=== PATIENT | female | born 2000 | race Caucasian/White ===

== ENCOUNTER → 2019-10-02 08:48 | Outpatient (BNVA) | payer OTHER, SELFPAY | PROVIDERS: Family Provider Family Medicine; PCP Family Medicine; Visit Provider Counselor Professional | DX: F31.62 Bipolar disorder, current episode mixed, moderate (principal); Z91.5 Personal history of self-harm; Z79.899 Other long term (current) drug therapy | CPT/HCPCS: 90834; 36415; 80053; 80178; 82306; 84443; 85025 ==

== ENCOUNTER → 2019-10-17 09:44 | Outpatient (BNVA) | payer OTHER, SELFPAY | PROVIDERS: Family Provider Family Medicine; PCP Family Medicine; Visit Provider Counselor Professional | DX: F31.62 Bipolar disorder, current episode mixed, moderate (principal); Z91.5 Personal history of self-harm | CPT/HCPCS: 90834 ==

== ENCOUNTER → 2019-10-31 09:43 | Outpatient (BNVA) | payer OTHER, SELFPAY | PROVIDERS: Family Provider Family Medicine; PCP Family Medicine; Visit Provider Counselor Professional | DX: F43.12 Post-traumatic stress disorder, chronic (principal); F31.62 Bipolar disorder, current episode mixed, moderate; Z91.5 Personal history of self-harm | CPT/HCPCS: 90834 ==

== ENCOUNTER → 2019-11-14 09:45 | Outpatient (BNVA) | payer OTHER, SELFPAY | PROVIDERS: Family Provider Family Medicine; PCP Family Medicine; Visit Provider Counselor Professional | DX: F60.3 Borderline personality disorder (principal); F43.12 Post-traumatic stress disorder, chronic; F31.62 Bipolar disorder, current episode mixed, moderate | CPT/HCPCS: 90834 ==

== ENCOUNTER → 2019-11-28 09:43 | Outpatient (BNVA) | payer OTHER, SELFPAY | PROVIDERS: Family Provider Family Medicine; PCP Family Medicine; Visit Provider Counselor Professional | DX: F43.12 Post-traumatic stress disorder, chronic (principal); Z91.5 Personal history of self-harm; F31.62 Bipolar disorder, current episode mixed, moderate | CPT/HCPCS: 90834 ==

== ENCOUNTER → 2019-12-26 10:05 | Outpatient (BNVA) | payer OTHER, SELFPAY | PROVIDERS: Family Provider Family Medicine; PCP Family Medicine; Visit Provider Counselor Professional | DX: F43.12 Post-traumatic stress disorder, chronic; F60.3 Borderline personality disorder; F31.62 Bipolar disorder, current episode mixed, moderate; Z91.5 Personal history of self-harm | CPT/HCPCS: 90834 ==

== ENCOUNTER → 2020-01-06 07:30 | Outpatient (BNVA) | payer OTHER, SELFPAY | PROVIDERS: Family Provider Family Medicine; PCP Family Medicine; Visit Provider Nurse Practitioner Psychiatric/Mental Health | DX: F31.62 Bipolar disorder, current episode mixed, moderate (principal); F43.12 Post-traumatic stress disorder, chronic; F60.3 Borderline personality disorder; Z91.5 Personal history of self-harm; F33.2 Major depressive disorder, recurrent severe without psychotic features | CPT/HCPCS: 99213 ==

== ENCOUNTER → 2020-01-23 07:59 | Outpatient (BNVA) | payer OTHER, SELFPAY | PROVIDERS: Family Provider Family Medicine; PCP Family Medicine; Visit Provider Counselor Professional | DX: Z91.5 Personal history of self-harm (principal); F43.12 Post-traumatic stress disorder, chronic; F60.3 Borderline personality disorder | CPT/HCPCS: 90834; 90839 ==

== ENCOUNTER → 2020-01-30 07:41 | Outpatient (BNVA) | payer OTHER, SELFPAY | PROVIDERS: Family Provider Family Medicine; PCP Family Medicine; Visit Provider Counselor Professional | DX: Z91.5 Personal history of self-harm (principal); F60.3 Borderline personality disorder; F43.12 Post-traumatic stress disorder, chronic; F31.62 Bipolar disorder, current episode mixed, moderate | CPT/HCPCS: 90834; 90839 ==

== ENCOUNTER → 2020-02-06 08:02 | Outpatient (BNVA) | payer OTHER, SELFPAY | PROVIDERS: Family Provider Family Medicine; PCP Family Medicine; Visit Provider Counselor Professional | DX: Z91.5 Personal history of self-harm (principal); F31.62 Bipolar disorder, current episode mixed, moderate; F43.12 Post-traumatic stress disorder, chronic | CPT/HCPCS: 90834 ==

== ENCOUNTER → 2020-02-13 07:57 | Outpatient (BNVA) | payer OTHER, SELFPAY | PROVIDERS: Family Provider Family Medicine; PCP Family Medicine; Visit Provider Counselor Professional | DX: Z91.5 Personal history of self-harm (principal); F31.62 Bipolar disorder, current episode mixed, moderate; F43.12 Post-traumatic stress disorder, chronic; F60.3 Borderline personality disorder | CPT/HCPCS: 90834 ==

== ENCOUNTER → 2020-02-25 07:53 | Outpatient (BNVA) | payer OTHER, SELFPAY | PROVIDERS: Family Provider Family Medicine; PCP Family Medicine; Visit Provider Counselor Professional | DX: F43.12 Post-traumatic stress disorder, chronic (principal); Z91.5 Personal history of self-harm; F31.62 Bipolar disorder, current episode mixed, moderate | CPT/HCPCS: 90834 ==

== ENCOUNTER → 2020-03-05 07:53 | Outpatient (BNVA) | payer OTHER, SELFPAY | PROVIDERS: Family Provider Family Medicine; PCP Family Medicine; Visit Provider Counselor Professional | DX: Z91.5 Personal history of self-harm (principal); F43.12 Post-traumatic stress disorder, chronic; F31.62 Bipolar disorder, current episode mixed, moderate | CPT/HCPCS: 90834 ==

== ENCOUNTER → 2020-03-19 08:14 | Outpatient (BNVA) | payer OTHER, BC, SELFPAY | PROVIDERS: Family Provider Family Medicine; PCP Family Medicine; Visit Provider Counselor Professional | DX: Z91.5 Personal history of self-harm (principal); F43.12 Post-traumatic stress disorder, chronic; F31.62 Bipolar disorder, current episode mixed, moderate | CPT/HCPCS: 90834 ==

== ENCOUNTER → 2020-04-01 08:09 | Outpatient (BNVA) | payer OTHER, SELFPAY | PROVIDERS: Family Provider Family Medicine; PCP Family Medicine; Visit Provider Counselor Professional | DX: F43.12 Post-traumatic stress disorder, chronic (principal); Z91.5 Personal history of self-harm; F31.62 Bipolar disorder, current episode mixed, moderate | CPT/HCPCS: 90834 ==

== ENCOUNTER → 2020-04-05 07:35 | Outpatient (BNVA) | payer OTHER, SELFPAY | PROVIDERS: Family Provider Family Medicine; PCP Family Medicine; Visit Provider Nurse Practitioner Psychiatric/Mental Health | DX: F31.62 Bipolar disorder, current episode mixed, moderate (principal); F43.12 Post-traumatic stress disorder, chronic; F60.3 Borderline personality disorder; Z91.5 Personal history of self-harm | CPT/HCPCS: 99214 ==

== ENCOUNTER → 2020-04-16 08:11 | Outpatient (BNVA) | payer OTHER, SELFPAY | PROVIDERS: Family Provider Family Medicine; PCP Family Medicine; Visit Provider Counselor Professional | DX: Z91.5 Personal history of self-harm (principal); F43.12 Post-traumatic stress disorder, chronic; F31.62 Bipolar disorder, current episode mixed, moderate | CPT/HCPCS: 90834 ==

== ENCOUNTER → 2020-05-03 10:57 | Outpatient (BNVA) | payer OTHER, SELFPAY | PROVIDERS: Family Provider Family Medicine; PCP Family Medicine; Visit Provider Nurse Practitioner Psychiatric/Mental Health | DX: Z79.899 Other long term (current) drug therapy (principal) | CPT/HCPCS: 80053; 82652; 84443; 85025 ==

== ENCOUNTER → 2020-05-04 07:44 | Outpatient (BNVA) | payer OTHER, SELFPAY | PROVIDERS: Family Provider Family Medicine; PCP Family Medicine; Visit Provider Nurse Practitioner Psychiatric/Mental Health | DX: F31.62 Bipolar disorder, current episode mixed, moderate (principal); F43.12 Post-traumatic stress disorder, chronic; F60.3 Borderline personality disorder; Z91.5 Personal history of self-harm | CPT/HCPCS: 99214 ==

== ENCOUNTER → 2020-05-06 07:38 | Outpatient (BNVA) | payer OTHER, SELFPAY | PROVIDERS: Family Provider Family Medicine; PCP Family Medicine; Visit Provider Counselor Professional | DX: F43.12 Post-traumatic stress disorder, chronic (principal); Z91.5 Personal history of self-harm; F31.62 Bipolar disorder, current episode mixed, moderate | CPT/HCPCS: 90834 ==

== ENCOUNTER → 2020-05-14 09:08 | Outpatient (BNVA) | payer OTHER, SELFPAY | PROVIDERS: Family Provider Family Medicine; PCP Family Medicine; Visit Provider Counselor Professional | DX: Z91.5 Personal history of self-harm (principal); F43.12 Post-traumatic stress disorder, chronic; F31.62 Bipolar disorder, current episode mixed, moderate | CPT/HCPCS: 90834 ==

== ENCOUNTER → 2020-05-19 07:37 | Outpatient (BNVA) | payer OTHER, SELFPAY | PROVIDERS: Family Provider Family Medicine; PCP Family Medicine; Visit Provider Nurse Practitioner Psychiatric/Mental Health | DX: F31.62 Bipolar disorder, current episode mixed, moderate (principal); F43.12 Post-traumatic stress disorder, chronic; F60.3 Borderline personality disorder; Z91.5 Personal history of self-harm | CPT/HCPCS: 99214 ==

== ENCOUNTER → 2020-05-21 08:26 | Outpatient (BNVA) | payer OTHER, SELFPAY | PROVIDERS: Family Provider Family Medicine; PCP Family Medicine; Visit Provider Counselor Professional | DX: Z91.5 Personal history of self-harm (principal); F43.12 Post-traumatic stress disorder, chronic; F31.62 Bipolar disorder, current episode mixed, moderate | CPT/HCPCS: 90834 ==

== ENCOUNTER → 2020-05-28 09:09 | Outpatient (BNVA) | payer OTHER, SELFPAY | PROVIDERS: Family Provider Family Medicine; PCP Family Medicine; Visit Provider Counselor Professional | DX: Z91.5 Personal history of self-harm (principal); F43.12 Post-traumatic stress disorder, chronic; F31.62 Bipolar disorder, current episode mixed, moderate | CPT/HCPCS: 90834 ==

== ENCOUNTER → 2020-06-07 08:19 | Outpatient (BNVA) | payer OTHER, SELFPAY | PROVIDERS: Family Provider Family Medicine; PCP Family Medicine; Visit Provider Nurse Practitioner Psychiatric/Mental Health | DX: F31.62 Bipolar disorder, current episode mixed, moderate (principal); F43.12 Post-traumatic stress disorder, chronic; F60.3 Borderline personality disorder; Z91.5 Personal history of self-harm | CPT/HCPCS: 99214 ==

== ENCOUNTER → 2020-06-11 07:51 | Outpatient (BNVA) | payer OTHER, SELFPAY | PROVIDERS: Family Provider Family Medicine; PCP Family Medicine; Visit Provider Counselor Professional | DX: Z91.5 Personal history of self-harm (principal); F43.12 Post-traumatic stress disorder, chronic; F31.62 Bipolar disorder, current episode mixed, moderate | CPT/HCPCS: 90834 ==

== ENCOUNTER → 2020-07-09 08:53 | Outpatient (BNVA) | payer OTHER, SELFPAY | PROVIDERS: Family Provider Family Medicine; PCP Family Medicine; Visit Provider Counselor Professional | DX: F31.62 Bipolar disorder, current episode mixed, moderate (principal); Z91.5 Personal history of self-harm; F43.12 Post-traumatic stress disorder, chronic | CPT/HCPCS: 90834 ==

== ENCOUNTER → 2020-07-16 08:20 | Outpatient (BNVA) | payer OTHER, SELFPAY | PROVIDERS: Family Provider Family Medicine; PCP Family Medicine; Visit Provider Counselor Professional | DX: Z91.5 Personal history of self-harm (principal); F43.12 Post-traumatic stress disorder, chronic; F31.62 Bipolar disorder, current episode mixed, moderate | CPT/HCPCS: 90834 ==

== ENCOUNTER → 2020-07-23 07:51 | Outpatient (BNVA) | payer OTHER, SELFPAY | PROVIDERS: Family Provider Family Medicine; PCP Family Medicine; Visit Provider Counselor Professional | DX: F31.62 Bipolar disorder, current episode mixed, moderate (principal); Z91.5 Personal history of self-harm; F43.12 Post-traumatic stress disorder, chronic | CPT/HCPCS: 90834 ==

== ENCOUNTER → 2020-07-30 07:30 | Outpatient (BNVA) | payer OTHER, SELFPAY | PROVIDERS: Family Provider Family Medicine; PCP Family Medicine; Visit Provider Nurse Practitioner Psychiatric/Mental Health | DX: F31.62 Bipolar disorder, current episode mixed, moderate (principal); F43.12 Post-traumatic stress disorder, chronic; F60.3 Borderline personality disorder; Z91.5 Personal history of self-harm; F41.1 Generalized anxiety disorder; Z79.899 Other long term (current) drug therapy | CPT/HCPCS: 99214 ==

== ENCOUNTER 2020-07-30 10:54 | Outpatient (CLI) | payer OTHER, SELFPAY ==
--- NOTE | 2020-07-30 11:17 | ECG_ITS ---
[facility] Test Date: 2020-07-30 Pat Name: Astrid Liu Department: Room: Gender: Female Nutrition Services Aide: : 2000 Requested By: Mary Kay Mitchell Order Number: [id number] Abel MD: REJI BECKWITH Measurements Intervals [place] Rate: 84 P: 38 [place]: 150 QRS: 58 QRSD: 114 T: 42 QT: 367 QTc: 434 Interpretive Statements SINUS RHYTHM WITH SINUS ARRHYTHMIA INCOMPLETE RIGHT BUNDLE BRANCH BLOCK [90+ ms QRS DURATION, TERMINAL R IN V1/V2, 40+ ms S IN I/aVL/V4/V5/V6] INTERPRETATION BASED ON A DEFAULT AGE OF 40 YEARS Compared to ECG 10/03/2016 12:30:09 No significant changes Electronically Signed On 07-30-2020 19:32:38 EMBOSSING CLERK by REJI BECKWITH [id number]
== END 2020-07-30 10:55 | disposition home or self-care (01) ==
LOC: RT 10:57
PROVIDERS: PCP Family Medicine; Visit Provider Nurse Practitioner Psychiatric/Mental Health
DX: Z03.89 Encounter for observation for other suspected diseases and conditions ruled out (principal)
CPT/HCPCS: 80061; 83036; 93005

== ENCOUNTER → 2020-08-06 09:43 | Outpatient (BNVA) | payer OTHER, SELFPAY | PROVIDERS: PCP Family Medicine; Visit Provider Counselor Professional | DX: F31.62 Bipolar disorder, current episode mixed, moderate (principal); F43.12 Post-traumatic stress disorder, chronic; Z91.5 Personal history of self-harm | CPT/HCPCS: 90834 ==

== ENCOUNTER → 2020-08-11 07:30 | Outpatient (BNVA) | payer OTHER, SELFPAY | PROVIDERS: PCP Family Medicine; Visit Provider Nurse Practitioner Psychiatric/Mental Health | DX: F31.62 Bipolar disorder, current episode mixed, moderate (principal); F43.12 Post-traumatic stress disorder, chronic; F60.3 Borderline personality disorder; Z91.5 Personal history of self-harm; Z79.899 Other long term (current) drug therapy | CPT/HCPCS: 99214 ==

== ENCOUNTER → 2020-08-25 07:33 | Outpatient (BNVA) | payer OTHER, SELFPAY | PROVIDERS: PCP Family Medicine; Visit Provider Nurse Practitioner Psychiatric/Mental Health | DX: F31.62 Bipolar disorder, current episode mixed, moderate (principal); F43.12 Post-traumatic stress disorder, chronic; Z91.5 Personal history of self-harm; F60.3 Borderline personality disorder; F41.1 Generalized anxiety disorder | CPT/HCPCS: 99214 ==

== ENCOUNTER → 2020-08-31 08:25 | Outpatient (BNVA) | payer OTHER, SELFPAY | PROVIDERS: PCP Family Medicine; Visit Provider Counselor Professional | DX: Z91.5 Personal history of self-harm (principal); F31.62 Bipolar disorder, current episode mixed, moderate; F43.12 Post-traumatic stress disorder, chronic; F60.3 Borderline personality disorder | CPT/HCPCS: 90834 ==

== ENCOUNTER → 2020-09-08 08:22 | Outpatient (BNVA) | payer OTHER, SELFPAY | PROVIDERS: PCP Family Medicine; Visit Provider Nurse Practitioner Psychiatric/Mental Health | DX: Z91.5 Personal history of self-harm (principal); F31.62 Bipolar disorder, current episode mixed, moderate; F43.12 Post-traumatic stress disorder, chronic; F60.3 Borderline personality disorder | CPT/HCPCS: 99214 ==

== ENCOUNTER → 2020-09-10 08:01 | Outpatient (BNVA) | payer OTHER, SELFPAY | PROVIDERS: PCP Family Medicine; Visit Provider Counselor Professional | DX: F31.62 Bipolar disorder, current episode mixed, moderate (principal); Z91.5 Personal history of self-harm; F43.12 Post-traumatic stress disorder, chronic; F60.3 Borderline personality disorder | CPT/HCPCS: 90834; 80178 ==

== ENCOUNTER → 2020-10-01 09:09 | Outpatient (BNVA) | payer OTHER, SELFPAY | PROVIDERS: PCP Family Medicine; Visit Provider Counselor Professional | DX: F31.62 Bipolar disorder, current episode mixed, moderate (principal); Z91.5 Personal history of self-harm; F43.12 Post-traumatic stress disorder, chronic; F60.3 Borderline personality disorder | CPT/HCPCS: 90834; 90839 ==

== ENCOUNTER → 2020-10-08 08:15 | Outpatient (BNVA) | payer OTHER, SELFPAY | PROVIDERS: PCP Family Medicine; Visit Provider Counselor Professional | DX: F31.62 Bipolar disorder, current episode mixed, moderate (principal); Z91.5 Personal history of self-harm; F43.12 Post-traumatic stress disorder, chronic; F60.3 Borderline personality disorder | CPT/HCPCS: 90834 ==

== ENCOUNTER → 2020-10-22 08:07 | Outpatient (BNVA) | payer OTHER, SELFPAY | PROVIDERS: PCP Family Medicine; Visit Provider Counselor Professional | DX: F60.3 Borderline personality disorder (principal); F43.12 Post-traumatic stress disorder, chronic; F31.62 Bipolar disorder, current episode mixed, moderate | CPT/HCPCS: 90834 ==

== ENCOUNTER → 2020-10-29 07:56 | Outpatient (BNVA) | payer OTHER, SELFPAY ==
[2020-10-27 16:47] VITALS: BP 136/72; BMI 43.6
== END ==
PROVIDERS: PCP Family Medicine; Visit Provider Nurse Practitioner Psychiatric/Mental Health
DX: F31.62 Bipolar disorder, current episode mixed, moderate (principal); F43.12 Post-traumatic stress disorder, chronic; F60.3 Borderline personality disorder; Z91.5 Personal history of self-harm; Z79.899 Other long term (current) drug therapy
CPT/HCPCS: 80178; 84439; 84443; 84481; 99214

== ENCOUNTER → 2020-11-04 07:43 | Outpatient (BNVA) | payer OTHER, SELFPAY ==
[2020-10-27 16:47] VITALS: BP 136/72; BMI 43.6
== END ==
PROVIDERS: PCP Family Medicine; Visit Provider Counselor Professional
DX: Z91.5 Personal history of self-harm (principal); F31.62 Bipolar disorder, current episode mixed, moderate; F43.12 Post-traumatic stress disorder, chronic; F60.3 Borderline personality disorder
CPT/HCPCS: 90834

== ENCOUNTER → 2020-11-17 08:34 | Outpatient (BNVA) | payer OTHER, SELFPAY ==
[2020-10-27 16:47] VITALS: BP 136/72; BMI 43.6
== END ==
PROVIDERS: PCP Family Medicine; Visit Provider Social Worker
DX: F60.3 Borderline personality disorder (principal); F43.12 Post-traumatic stress disorder, chronic; Z91.5 Personal history of self-harm; F31.62 Bipolar disorder, current episode mixed, moderate
CPT/HCPCS: 90834

== ENCOUNTER → 2020-11-26 07:58 | Outpatient (BNVA) | payer OTHER, SELFPAY ==
[2020-10-27 16:47] VITALS: BP 136/72; BMI 43.6
== END ==
PROVIDERS: PCP Family Medicine; Visit Provider Nurse Practitioner Psychiatric/Mental Health
DX: F43.12 Post-traumatic stress disorder, chronic (principal); F31.62 Bipolar disorder, current episode mixed, moderate; F60.3 Borderline personality disorder; Z79.899 Other long term (current) drug therapy; Z03.89 Encounter for observation for other suspected diseases and conditions ruled out; Z91.5 Personal history of self-harm
CPT/HCPCS: 99214

== ENCOUNTER → 2020-12-08 07:54 | Outpatient (BNVA) | payer OTHER, SELFPAY ==
[2020-10-27 16:47] VITALS: BP 136/72; BMI 43.6
== END ==
PROVIDERS: PCP Family Medicine; Visit Provider Social Worker
DX: F60.3 Borderline personality disorder (principal); F43.12 Post-traumatic stress disorder, chronic; F31.62 Bipolar disorder, current episode mixed, moderate
CPT/HCPCS: 90834

== ENCOUNTER → 2020-12-10 07:31 | Outpatient (BNVA) | payer OTHER, SELFPAY ==
[2020-10-27 16:47] VITALS: BP 136/72; BMI 43.6
== END ==
PROVIDERS: PCP Family Medicine; Visit Provider Nurse Practitioner Psychiatric/Mental Health
DX: F31.62 Bipolar disorder, current episode mixed, moderate (principal); F43.12 Post-traumatic stress disorder, chronic; Z79.899 Other long term (current) drug therapy; Z03.89 Encounter for observation for other suspected diseases and conditions ruled out; Z91.5 Personal history of self-harm; F60.3 Borderline personality disorder; F10.20 Alcohol dependence, uncomplicated
CPT/HCPCS: 99214

== ENCOUNTER → 2020-12-15 14:40 | Outpatient (BNVA) | payer OTHER, SELFPAY ==
[2020-10-27 16:47] VITALS: BP 136/72; BMI 43.6
== END ==
PROVIDERS: PCP Family Medicine; Visit Provider Social Worker
DX: F43.12 Post-traumatic stress disorder, chronic (principal); F60.3 Borderline personality disorder
CPT/HCPCS: 90834

== ENCOUNTER → 2020-12-22 14:44 | Outpatient (BNVA) | payer OTHER, SELFPAY ==
[2020-10-27 16:47] VITALS: BP 136/72; BMI 43.6
== END ==
PROVIDERS: PCP Family Medicine; Visit Provider Social Worker
DX: F60.3 Borderline personality disorder (principal); F43.10 Post-traumatic stress disorder, unspecified
CPT/HCPCS: 90834

== ENCOUNTER → 2020-12-24 13:19 | Outpatient (BNVA) | payer OTHER, SELFPAY ==
[2020-10-27 16:47] VITALS: BP 136/72; BMI 43.6
== END ==
PROVIDERS: PCP Family Medicine; Visit Provider Nurse Practitioner Psychiatric/Mental Health
DX: Z03.89 Encounter for observation for other suspected diseases and conditions ruled out (principal)
CPT/HCPCS: 80053

== ENCOUNTER → 2020-12-31 07:28 | Outpatient (BNVA) | payer OTHER, SELFPAY ==
[2020-10-27 16:47] VITALS: BP 136/72; BMI 43.6
== END ==
PROVIDERS: PCP Family Medicine; Visit Provider Nurse Practitioner Psychiatric/Mental Health
DX: F31.62 Bipolar disorder, current episode mixed, moderate (principal); F43.12 Post-traumatic stress disorder, chronic; Z91.5 Personal history of self-harm; Z79.899 Other long term (current) drug therapy; Z03.89 Encounter for observation for other suspected diseases and conditions ruled out; F60.3 Borderline personality disorder; F10.20 Alcohol dependence, uncomplicated
CPT/HCPCS: 99214

== ENCOUNTER → 2021-01-05 14:45 | Outpatient (BNVA) | payer OTHER, SELFPAY ==
[2020-10-27 16:47] VITALS: BP 136/72; BMI 43.6
== END ==
PROVIDERS: PCP Family Medicine; Visit Provider Social Worker
DX: F60.3 Borderline personality disorder (principal); F10.20 Alcohol dependence, uncomplicated; Z91.5 Personal history of self-harm; F43.12 Post-traumatic stress disorder, chronic; F31.62 Bipolar disorder, current episode mixed, moderate
CPT/HCPCS: 90834

== ENCOUNTER 2021-01-05 19:20 | Emergency (ER) | payer OTHER, SELFPAY ==
[2020-10-27 16:47] VITALS: BP 136/72; BMI 43.6
[2021-01-05 19:51] VITALS: BP 168/95; PULSE 84; RESP 18; TEMP 36.9; O2SAT 100; BMI 39.4
--- NOTE | 2021-01-05 20:31 | ECG_ITS ---
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 Measurements Intervals [place] Rate: 87 P: 34 [place]: 129 QRS: 56 QRSD: 119 T: 32 QT: 371 QTc: 447 Interpretive Statements SINUS RHYTHM WITH SINUS ARRHYTHMIA MODERATE INTRAVENTRICULAR CONDUCTION DELAY [110+ ms QRS DURATION] Compared to ECG 07/30/2020 11:10:12 Intraventricular conduction delay now present Incomplete right bundle-branch block no longer present Electronically Signed On 01-05-2021 23:59:38 CDT by Christine Andrea M.D. [id number]
--- NOTE | 2021-01-05 20:59 | W.ED.ANXIETY ---
HPI - Anxiety General: Chief Complaint: Anxiety Stated Complaint: took caffeine pills Time Seen by Provider: 01/05/21 20:04 Source: patient Mode of arrival: ambulatory Limitations: no limitations History of Present Illness: HPI narrative: 20-year-old female who states she took a 500 mg caffeine pill today at 6 PM. She states she has never taken one before states she started having severe palpitations and feeling extremely anxious. States her heart rate was racing in the 120s causing her some chest discomfort. She states she took a Vistaril at home and is feeling improved but still has some palpitations. Denies any shortness of breath. Denies any worsening or factors. Associated symptoms: Reports palpitations; Deny chest pain, chills, fever(s), headache(s), nausea or vomiting Review of Systems Const: Denies: fever(s), chills, body aches or change in appetite Eyes: Denies: blurry vision or eye discomfort ENMT: Denies: throat pain or dental pain Card: Reports: palpitations; Denies: chest pain Resp: Denies: dyspnea GI: Denies: abdominal pain, nausea, vomiting or diarrhea : Denies: dysuria Musc: Denies: neck pain or back pain Skin/Breast: Denies: rash Neuro: Denies: headache(s) Psych: Denies: depression Roger/Lymph: Denies: easy bruising All/Imm: Denies: urticaria PFSH ED PFSH: Medical History (Updated 01/05/21 @ 21:02 by Etta Arnold MD) Alcohol use disorder, moderate, dependence Bipolar 1 disorder, mixed, moderate Borderline personality disorder History of self injurious behavior Post-traumatic stress disorder, chronic Social History Smoking and tobacco status: never smoked Female Reproductive History: Date of last menstrual period: 12/23/20 Physical Exam Const: COMMON NORMALS: no acute distress, patient oriented x3 and healthy appearing HENMT: COMMON NORMALS: normocephalic and atraumatic HEAD & SCALP: normocephalic and atraumatic Eye: COMMON NORMALS: Equal, round and reactive pupils present and EOMs intact bilaterally PUPIL: Yes Equal, round and reactive pupils present Neck/C-Spine: COMMON NORMALS: full ROM and supple Chest: COMMONS NORMALS: normal inspection of the chest and normal palpation of entire chest wall Resp: COMMON NORMALS: normal respiratory effort, No retractions, No use of accessory muscles and clear to auscultation bilaterally AUSCULTATION: clear to auscultation bilaterally Cardio: COMMON NORMALS: regular rate, regular rhythm and No murmurs present (Cardio) RATE: regular rate RHYTHM: regular rhythm GI: COMMON NORMALS: Normal to inspection, nondistended, normoactive bowel sounds present, Soft to palpation, non-tender and no masses PALPATION: Yes Soft to palpation Extremity: COMMON NORMALS: normal to inspection and full ROM Neuro: COMMON NORMALS: patient oriented x3, moves all extremities and no focal motor deficits Psych: COMMON NORMALS: mental status grossly normal, Normal thought process present and cooperative THOUGHT PROCESS: Normal thought process present Skin: COMMON NORMALS: no rashes or lesions noted and no wounds GENERAL SKIN EXAM: no rashes or lesions noted Course Vital Signs: Vital signs: Vital Signs Temperature 98.4 F 01/05/21 19:51 Pulse Rate 74 01/05/21 21:26 Respiratory Rate 18 01/05/21 21:26 Blood Pressure 142/81 01/05/21 21:26 Pulse Oximetry 100 01/05/21 21:26 MDM - Anxiety MDM Narrative: Medical decision making narrative: Astrid presents here with palpitations likely from caffeine pills. She feels much improved here and EKG here is normal. She has no signs of cardiac cause. She is stable for discharge and return if worsening. EKG Data^: EKG 1: Attestation: I personally reviewed and interpreted this EKG as follows: EKG interpretation date: 01/05/21 EKG interpretation time: 21:09 Interpretation: nsr hr [address] or t wave abnormalities qrs 119 qtc 415 Discharge Plan Discharge Patient Disposition: Home Clinical Impression: Palpitations Condition: Stable Prescriptions: No Action hydroxyzine HCl 25 mg tablet 25 mg PO BID PRN (Reason: anxiety) Qty: 180 RF: 2 levothyroxine 50 mcg capsule 50 mcg PO DAILY@0 RF: 0 trazodone 50 mg tablet 25 mg PO BEDTIME@2099 RF: 0 naltrexone 50 mg tablet 50 mg PO DAILY@0 RF: 0 lithium carbonate 600 mg capsule 600 mg PO BID@429,2099 RF: 0 ziprasidone HCl [Geodon] 40 mg capsule 40 mg PO DAILY@1800 RF: 0 acetylcysteine 600 mg capsule 600 mg PO BEDTIME@2100 RF: 0 Tylenol 325 mg Tablet 325 mg PO QID PRN (Reason: Pain) RF: 0 naproxen 1 tab PO Q6H PRN (Reason: Pain) RF: 0 Discharge Orders: Discharge ED (Routine); Ordered 01/05/21 Ordered By: Etta Arnold Referrals: Jose Garcia MD [Primary Care Provider] - 1-3 days Discharge Diet: Advance as tolerated Discharge Activity: Resume usual activity Patient Instructions: Palpitations (ED) Stand Alone Forms: Work/School Release Coding Level of Care Code ED Senior Support Engineer for Chg Fwd Exam Comprehensive
[2021-01-05] MEDS: LORazepam 1 mg Tablet PO (21:25)
[2021-01-05 21:26] VITALS: BP 142/81; PULSE 74; RESP 18; O2SAT 100
[2021-01-05 21:44] VITALS: BP 155/92; PULSE 88; RESP 18; O2SAT 100
== END 2021-01-05 21:46 | disposition home or self-care (01) ==
PROVIDERS: Emergency Provider Emergency Medicine; PCP Family Medicine
DX: R00.2 Palpitations (principal)
CPT/HCPCS: 93005; 99283

== ENCOUNTER → 2021-01-12 14:42 | Outpatient (BNVA) | payer OTHER, SELFPAY ==
[2020-10-27 16:47] VITALS: BP 136/72; BMI 43.6
== END ==
PROVIDERS: PCP Family Medicine; Visit Provider Social Worker
DX: F60.3 Borderline personality disorder (principal); F10.20 Alcohol dependence, uncomplicated; Z91.5 Personal history of self-harm; F43.12 Post-traumatic stress disorder, chronic; F31.62 Bipolar disorder, current episode mixed, moderate
CPT/HCPCS: 90834

== ENCOUNTER → 2021-01-26 14:43 | Outpatient (BNVA) | payer OTHER, SELFPAY ==
[2020-10-27 16:47] VITALS: BP 136/72; BMI 43.6
== END ==
PROVIDERS: PCP Family Medicine; Visit Provider Social Worker
DX: F60.3 Borderline personality disorder (principal); F10.20 Alcohol dependence, uncomplicated; Z91.5 Personal history of self-harm; F43.12 Post-traumatic stress disorder, chronic; F31.62 Bipolar disorder, current episode mixed, moderate
CPT/HCPCS: 90834

== ENCOUNTER → 2021-01-28 07:31 | Outpatient (BNVA) | payer OTHER, SELFPAY ==
[2020-10-27 16:47] VITALS: BP 136/72; BMI 43.6
== END ==
PROVIDERS: PCP Family Medicine; Visit Provider Nurse Practitioner Psychiatric/Mental Health
DX: F43.12 Post-traumatic stress disorder, chronic (principal); F31.62 Bipolar disorder, current episode mixed, moderate; Z79.899 Other long term (current) drug therapy; Z03.89 Encounter for observation for other suspected diseases and conditions ruled out; Z91.5 Personal history of self-harm; F60.3 Borderline personality disorder; F10.20 Alcohol dependence, uncomplicated; F90.2 Attention-deficit hyperactivity disorder, combined type
CPT/HCPCS: 99214

== ENCOUNTER → 2021-02-02 09:42 | Outpatient (BNVA) | payer OTHER, SELFPAY ==
[2020-10-27 16:47] VITALS: BP 136/72; BMI 43.6
== END ==
PROVIDERS: PCP Family Medicine; Visit Provider Social Worker
DX: F60.3 Borderline personality disorder (principal); F10.20 Alcohol dependence, uncomplicated; Z91.5 Personal history of self-harm; F43.12 Post-traumatic stress disorder, chronic; F31.62 Bipolar disorder, current episode mixed, moderate
CPT/HCPCS: 90834

== ENCOUNTER → 2021-02-11 08:06 | Outpatient (BNVA) | payer OTHER, SELFPAY ==
[2020-10-27 16:47] VITALS: BP 136/72; BMI 43.6
== END ==
PROVIDERS: PCP Family Medicine; Visit Provider Nurse Practitioner Psychiatric/Mental Health
DX: F31.62 Bipolar disorder, current episode mixed, moderate (principal); F43.12 Post-traumatic stress disorder, chronic; F60.3 Borderline personality disorder; Z79.899 Other long term (current) drug therapy; Z03.89 Encounter for observation for other suspected diseases and conditions ruled out; Z91.5 Personal history of self-harm; F10.20 Alcohol dependence, uncomplicated
CPT/HCPCS: 99214

== ENCOUNTER → 2021-02-16 14:42 | Outpatient (BNVA) | payer OTHER, SELFPAY ==
[2020-10-27 16:47] VITALS: BP 136/72; BMI 43.6
== END ==
PROVIDERS: PCP Family Medicine; Visit Provider Social Worker
DX: F60.3 Borderline personality disorder (principal); F10.20 Alcohol dependence, uncomplicated; Z91.5 Personal history of self-harm; F43.12 Post-traumatic stress disorder, chronic; F31.62 Bipolar disorder, current episode mixed, moderate
CPT/HCPCS: 90834

== ENCOUNTER → 2021-02-25 08:42 | Outpatient (BNVA) | payer OTHER, SELFPAY ==
[2020-10-27 16:47] VITALS: BP 136/72; BMI 43.6
== END ==
PROVIDERS: PCP Family Medicine; Visit Provider Nurse Practitioner Psychiatric/Mental Health
DX: F31.62 Bipolar disorder, current episode mixed, moderate (principal); F43.12 Post-traumatic stress disorder, chronic; F60.3 Borderline personality disorder; Z91.5 Personal history of self-harm; F10.20 Alcohol dependence, uncomplicated
CPT/HCPCS: 99214

== ENCOUNTER → 2021-06-10 11:24 | Outpatient (BNVA) | payer OTHER, SELFPAY ==
[2020-10-27 16:47] VITALS: BP 136/72; BMI 43.6
== END ==
PROVIDERS: PCP Family Medicine; Visit Provider Nurse Practitioner Psychiatric/Mental Health
DX: Z79.899 Other long term (current) drug therapy (principal)
CPT/HCPCS: 80053; 80061; 83036

== ENCOUNTER 2021-06-15 15:59 | Outpatient (CLI) | payer OTHER, SELFPAY ==
[2020-10-27 16:47] VITALS: BP 136/72; BMI 43.6
--- NOTE | 2021-06-15 16:33 | ECG_ITS ---
[facility] Test Date: 2021-06-15 Pat Name: Astrid Liu Department: Room: Gender: Female Swatch Clerk: : 2000 Requested By: Mary Kay Mitchell Order Number: [id number] Abel MD: Christine Andrea M.D. Measurements Intervals [place] Rate: 73 P: 39 [place]: 151 QRS: 68 QRSD: 113 T: 53 QT: 382 QTc: 421 Interpretive Statements SINUS RHYTHM WITH SINUS ARRHYTHMIA INCOMPLETE RIGHT BUNDLE BRANCH BLOCK [90+ ms QRS DURATION, TERMINAL R IN V1/V2, 40+ ms S IN I/aVL/V4/V5/V6] Compared to ECG 01/05/2021 21:09:31 Incomplete right bundle-branch block now present Intraventricular conduction delay no longer present Electronically Signed On 06-15-2021 23:58:50 CDT by Christine Andrea M.D. [id number]
== END 2021-06-15 16:00 | disposition home or self-care (01) ==
LOC: RT 16:02
PROVIDERS: PCP Family Medicine; Visit Provider Nurse Practitioner Psychiatric/Mental Health
DX: Z79.899 Other long term (current) drug therapy (principal); I45.19 Other right bundle-branch block
CPT/HCPCS: 93005

== ENCOUNTER 2021-10-04 09:54 | Inpatient (IN) | payer OTHER, SELFPAY ==
[2021-10-04 09:44] VITALS: BP 136/72; BMI 43.6
[2021-10-04 09:57] VITALS: BMI 42.0
--- NOTE | 2021-10-04 10:38 | ED.C_ITS ---
HPI - Psych General: Chief Complaint: Psychiatric Symptoms Stated Complaint: Mental Health Exam Time Seen by Provider: 10/04/21 10:10 History of Present Illness: HPI Narrative: Patient states he is having suicidal thoughts. She has not acted on the thoughts but she has a plan to cut her neck. She was sent here by her [employer] worker. 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 Patient's had 3 psych admissions as pediatric patient for suicidal ideations. Patient has history of PTSD. Admits to cutting on a regular basis MD complaint: suicidal ideation Onset (ago): week(s) Duration: constant and getting worse History of same: Yes Exacerbating factors: alcohol Context: recent alcohol abuse Associated psychiatric symptoms: depression and suicidal ideation Associated symptoms: Reports no associated symptoms, depression and suicidal ideation Treatments prior to arrival: other (Has been seen regularly at [facility]) If self harm: admits thoughts of self harm and has plan Review of Systems Const: Denies: fever(s), chills or body aches Eyes: Denies: change in vision or blurry vision ENMT: Denies: throat pain or nasal congestion Card: Denies: chest pain or dyspnea on exertion Resp: Denies: dyspnea, productive cough or non-productive cough GI: Denies: abdominal pain, nausea or vomiting Musc: Denies: extremity pain Skin/Breast: Denies: rash Neuro: Denies: headache(s) Psych: Reports: depression and suicidal ideation; Denies: anxiety Roger/Lymph: Denies: easy bruising PFS ED PFSH: Medical History Alcohol use disorder, moderate, dependence Bipolar 1 disorder, mixed, moderate Borderline personality disorder History of self injurious behavior Post-traumatic stress disorder, chronic Psychiatric care Social History Smoking and tobacco status: never smoked Second hand smoke exposure: No Female Reproductive History: Date of last menstrual period: 08/18/21 Physical Exam Const: COMMON NORMALS: no acute distress, average body habitus and patient oriented x3 HENMT: COMMON NORMALS: normocephalic HEAD & SCALP: normal to inspection and normocephalic FACE & SINUS: normal facial exam Eye: COMMON NORMALS: conjunctivae normal GENERAL EYE: appearance normal, both eyes and all related structures CONJUNCTIVA: Yes conjunctivae normal Neck/C-Spine: COMMON NORMALS: no JVD Chest: COMMONS NORMALS: normal inspection of the chest Resp: COMMON NORMALS: normal respiratory effort and clear to auscultation bilaterally AUSCULTATION: clear to auscultation bilaterally Cardio: COMMON NORMALS: no JVD, regular rate and regular rhythm RATE: regular rate RHYTHM: regular rhythm GI: COMMON NORMALS: Normal to inspection, nondistended, normoactive bowel sounds present Extremity: COMMON NORMALS: normal to inspection and full ROM Neuro: COMMON NORMALS: patient oriented x3 Psych: COMMON NORMALS: mental status grossly normal, Normal thought process present and speech normal APPEARANCE: Yes grossly normal ATTITUDE: Yes calm ACTIVITY/MOTOR BEHAVIOR: Yes appropriate eye contact SPEECH: Yes normal speech MOOD & AFFECT: Yes elevated mood THOUGHT PROCESS: Normal thought process present THOUGHT CONTENT: Yes Suicidality present Skin: NARRATIVE SKIN EXAM: Has healing wound on the leg that needs stitches removed Course Vital Signs: Vital signs: Vital Signs Pulse Rate 71 10/04/21 11:16 Respiratory Rate 16 10/04/21 11:16 Blood Pressure 146/99 10/04/21 11:16 Pulse Oximetry 98 10/04/21 11:16 MDM - Psych MDM Narrative: Medical decision making narrative: I spoke with Dr. Hicks and he agrees accept patient for admission to Neuropsych Unit. Vital signs are stable. Does not appear to be withdrawing from alcohol, EtOH level was less than 0.10. Lab Data: Labs: Lab Results 10/04/21 10/04/21 10/04/21 10:22 10:22 10:56 WBC RBC Hgb Hct MCV MCH MCHC RDW Plt Count MPV Neut % (Auto) Lymph % (Auto) [place] % (Auto) Eos % (Auto) Baso % (Auto) Neut # (Auto) Lymph # (Auto) [place] # (Auto) Eos # (Auto) Baso # (Auto) Nucleated RBC % (a uto) Nucleated RBCs # Sodium 138 mmol/L mmol/L (136-145) Potassium 4.0 mmol/L mmol/L (3.5-5.1) Chloride 104 mmol/L mmol/L (98-107) Carbon Dioxide 21 mmol/L L mmol/ L (22-29) Anion Gap 17.0 (5-19) BUN 10 mg/dL mg/dL (6-20) Creatinine 0.8 mg/dL mg/dL (0.5-0.9) GFR Calculation 89.7 mL/min L mL/ min (90-130) Glucose 87 mg/dL mg/dL (65-115) Calculated Osmolal ity 284 mOsm/kg L mOs m/kg (285-295) Calcium 9.3 mg/dL mg/dL (8.5-10.5) Total Bilirubin 0.4 mg/dL mg/dL (0.15-1.2) AST 25 U/L U/L (0-32) ALT 22 U/L U/L (0-33) Alkaline Phosphata se 92 IU/L IU/L (35-105) Total Protein 7.1 g/dL g/dL (6.6-8.7) Albumin 4.2 g/dL g/dL (3.5-5.2) Globulin 2.9 g/dL g/dL (1.3-4.6) Urine Color Yellow (Yellow) Urine Appearance Cloudy (CLEAR) Urine pH 8 H (5-7) Ur Specific Gravit y 1.015 (1.005-1.030) Urine Protein Neg (Negative) Urine Glucose (UA) Norm (Normal) Urine Ketones Negative (Negative) Urine Blood Neg (Negative) Urine Nitrate Negative (Negative) Urine Bilirubin Neg (Negative) Prot Sulfosalicyli c Acd Negative (Negative) Urine Urobilinogen Norm mg/dL mg/dL (Negative) Ur Leukocyte Jodi ase 1+ H (Negative) Urine RBC None /hpf /hpf (0-2) Urine WBC 5-10 /hpf H /hpf (0-5) Ur Squamous Epith Cells 0-4 /hpf H /hpf (0-5) Amorphous Sediment Not Reportable Urine Bacteria 2+ /hpf H /hpf (NONE) Salicylates < 0.3 mg/dL L mg/ dL (3-10) Urine Opiates Scre en Negative ng/mL ng /mL (Negative) Acetaminophen < 5.0 ug/mL L ug/ mL (10-30) Ur Barbiturates Sc reen Negative ng/mL ng /mL (Negative) Ur Phencyclidine S crn Negative ng/mL ng /mL (Negative) Ur Amphetamines Sc reen Negative ng/mL ng /mL (Negative) U Benzodiazepines Scrn Negative ng/mL ng /mL (Negative) Urine Cocaine Scre en Negative ng/mL ng /mL (Negative) U Marijuana (THC) Screen Negative ng/mL ng /mL (Negative) Ethyl Alcohol < 10 mg/dL mg/dL (0-10) 10/04/21 10:56 WBC 7.0 10^3/uL 10^3/ uL (4.0-10.0) RBC 4.40 10^6/uL 10^6 /uL (4.1-5.3) Hgb 12.9 g/dL g/dL (11.5-15.3) Hct 39.1 % % (37.0-47.0) MCV 88.9 fl fl (81-99) MCH 29.3 pg pg (28.0-34.0) MCHC 33.0 g/dL g/dL (30.0-36.0) RDW 11.9 % L % (12.1-15.1) Plt Count 235 10^3/cmm 10^3 /cmm (130-400) MPV 10.5 fL H fL (7.4-10.4) Neut % (Auto) 64.2 % % Lymph % (Auto) 27.8 % % [place] % (Auto) 6.4 % % Eos % (Auto) 0.9 % % Baso % (Auto) 0.6 % % Neut # (Auto) 4.48 10^3/uL 10^3 /uL (1.8-7.7) Lymph # (Auto) 1.9 10^3/uL 10^3/ uL (0.8-4.8) [place] # (Auto) 0.5 10^3/uL 10^3/ uL (0.2-0.9) Eos # (Auto) 0.1 10^3/uL 10^3/ uL (0.0-0.8) Baso # (Auto) 0.0 10^3/uL 10^3/ uL (0.0-0.1) Nucleated RBC % (a uto) 0 % % Nucleated RBCs # 0.0 /100WBC /100W BC Sodium Potassium Chloride Carbon Dioxide Anion Gap BUN Creatinine GFR Calculation Glucose Calculated Osmolal ity Calcium Total Bilirubin AST ALT Alkaline Phosphata se Total Protein Albumin Globulin Urine Color Urine Appearance Urine pH Ur Specific Gravit y Urine Protein Urine Glucose (UA) Urine Ketones Urine Blood Urine Nitrate Urine Bilirubin Prot Sulfosalicyli c Acd Urine Urobilinogen Ur Leukocyte Jodi ase Urine RBC Urine WBC Ur Squamous Epith Cells Amorphous Sediment Urine Bacteria Salicylates Urine Opiates Scre en Acetaminophen Ur Barbiturates Sc reen Ur Phencyclidine S crn Ur Amphetamines Sc reen U Benzodiazepines Scrn Urine Cocaine Scre en U Marijuana (THC) Screen Ethyl Alcohol Discharge Plan Discharge Patient Disposition: Admitted As Inpatient Clinical Impression: Suicidal ideation Condition: Stable Coding Level of Care Code ED Marine Equipment Preservation Inspector for [place] Fwd Exam Comprehensive
[2021-10-04 11:02] LABS: Amphetamines Screen Urine Negative (Negative); Barbiturates Screen Urine Negative (Negative); Benzodiazepines Screen Urine Negative (Negative); Cocaine Screen Urine Negative (Negative); Opiate Screen Urine Negative (Negative); PCP Screen Urine Negative (Negative); THC Screen Urine Negative (Negative)
[2021-10-04 11:16] VITALS: BP 146/99; PULSE 71; RESP 16; O2SAT 98
[2021-10-04 11:16] LABS: Basophils % 0.6 %; Eosinophils # 0.1 10^3/uL (0.0-0.8); Eosinophils % 0.9 %; Hematocrit 39.1 % (37.0-47.0); Hemoglobin 12.9 g/dL (11.5-15.3); Lymphocytes # 1.9 10^3/uL (0.8-4.8); Lymphocytes % 27.8 %; Mean Corpuscular Hemoglobin 29.3 pg (28.0-34.0); Mean Corpuscular Volume 88.9 fl (81-99); Mean Platelet Volume 10.5 fL (7.4-10.4); Monocytes # 0.5 10^3/uL (0.2-0.9); Monocytes % 6.4 %; Neutrophils # 4.48 10^3/uL (1.8-7.7); Neutrophils % 64.2 %; Nucleated Red Blood Cells % 0 %; Platelet Count 235 10^3/cmm (130-400); Red Cell Distribution Width 11.9 % (12.1-15.1)
[2021-10-04 11:22] LABS: Add Urine Microscopic? YES; Bilirubin Urine Neg (Negative); Blood Urine Neg (Negative); Glucose Urine UA Norm (Normal); Ketones Urine Negative (Negative); Leukocyte Esterase Urine 1+ (Negative); Nitrate Urine Negative (Negative); Protein Urine Neg (Negative); Specific Gravity, Urine 1.015 (1.005-1.030); Sulfosalicylic Acid Urine Negative (Negative); Urine Appearance Cloudy (CLEAR); Urine Color Yellow (Yellow); Urobilinogen Urine Norm (Negative); pH Urine 8 (5-7)
[2021-10-04 11:23] LABS: Add Urine Culture? Yes; Bacteria Urine 2+ /hpf; Squamous Epithelial Cell Urine 0-4 /hpf (0-5)
[2021-10-04 11:39] LABS: Alanine Aminotransferase 22 U/L (0-33); Albumin Level 4.2 g/dL (3.5-5.2); Alkaline Phosphatase 92 IU/L (35-105); Aspartate Amino Transferase 25 U/L (0-32); Blood Urea Nitrogen 10 mg/dL (6-20); Calcium 9.3 mg/dL (8.5-10.5); Carbon Dioxide 21 mmol/L (22-29); Chloride 104 mmol/L (98-107); Globulin 2.9 g/dL (1.3-4.6); Glomerular Filtration Rate 89.7 mL/min (90-130); Glucose 87 mg/dL (65-115); Osmolality Calculated 284 mOsm/kg (285-295); Sodium 138 mmol/L (136-145); Total Bilirubin 0.4 mg/dL (0.15-1.2); Total Protein 7.1 g/dL (6.6-8.7)
[2021-10-04 11:46] LABS: Salicylate < 0.3 mg/dL (3-10)
[2021-10-04 11:47] LABS: Acetaminophen < 5.0 ug/mL (10-30); Alcohol Level < 10 mg/dL (0-10)
[2021-10-04 14:06] VITALS: BP 133/91; PULSE 83; RESP 18; O2SAT 100
[2021-10-04 15:23] VITALS: BP 163/86; PULSE 94; RESP 17; TEMP 36.6; O2SAT 100
--- NOTE | 2021-10-04 16:39 | PC.NURSE ---
ADMISSION Patient states he is having suicidal thoughts. She has not acted on the thoughts but she has a plan to cut her neck. She was sent here by her [employer] worker. 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 Patient's had 3 psych admissions as pediatric patient for suicidal ideations. Patient has history of PTSD. Admits to cutting on a regular basis. Upon arrival to unit patient is calm, cooperative, A&OX4. Endorses depression and recent self-harm but none in 9 days. Has stitches to left liu, cuts to BLE. States no self-harm before this for 11 months. Extensive cutting scars to BUE/BLE. States she has been drinking with her meds recently and thinks this is effecting her medications.
[2021-10-04 21:05] VITALS: BP 163/86; PULSE 94; RESP 17; TEMP 36.6; O2SAT 100
[2021-10-04] MEDS: hyDROXYzine 25 mg Capsule 50 MG PO (21:20)
[2021-10-04] MEDS: ziprasidone hcl 60 mg Capsule PO (22:09)
[2021-10-04] MEDS: propranolol 20 mg Tablet 10 MG PO (22:10)
[2021-10-04] MEDS: OLANZapine 5 mg ODT PO (22:56)
--- NOTE | 2021-10-04 23:40 | PC.NURSE ---
At approximately 2250 this nurse was called to patients room due to reports from another patient that patient was covered in blood. Patient had been picking and scratching 2 1/2 by 1 1/2 cm with reddened center 1/2 centemeter in diameter. There was a small amount of blood noted. Site was cleansed with NS and bandaid was applied. Patient was moved to room 150-1 for close observation. Patient contracts with this nurse for safety.
--- NOTE | 2021-10-05 03:08 | PC.NURSE ---
PRN Administration: Patient requested PRN hydroxyzine PO, given as ordered, was not effective. Patient continued to have anxiety and increase in SI, given PRN zyprexa PO as ordered with noted effectiveness.
[2021-10-05 06:00] VITALS: BP 108/64; PULSE 76; RESP 15; TEMP 36.6; O2SAT 98
[2021-10-05] MEDS: naltrexone hcl 50 mg Tablet PO (06:10)
[2021-10-05] MEDS: levothyroxine 50 mcg Tablet PO (06:11)
--- NOTE | 2021-10-05 07:07 | W.PM.NPUH&PS ---
Providers/Chief Complaint Admitting Physician: Vasu Hicks MD Primary Care Provider: Jose Garcia MD Chief Complaint: Mental Health Exam HPI NPU History of Present Illness Astrid Liu is a 21 year old female who presented to the emergency department report: Chief Complaint: Psychiatric Symptoms Stated Complaint: Mental Health Exam Time Seen by Provider: 10/04/21 10:10 History of Present Illness: HPI Narrative: Patient states he is having suicidal thoughts. She has not acted on the thoughts but she has a plan to cut her neck. She was sent here by her [employer] worker. 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 Patient's had 3 psych admissions as pediatric patient for suicidal ideations. Patient has history of PTSD. Admits to cutting on a regular basis complaint: suicidal ideation Onset (ago): week(s) Duration: constant and getting worse History of same: Yes Exacerbating factors: alcohol Context: recent alcohol abuse Associated psychiatric symptoms: depression and suicidal ideation Associated symptoms: Reports no associated symptoms, depression and suicidal ideation Treatments prior to arrival: other ([facility]) If self harm: admits thoughts of self harm and has plan. She was admitted to the neuropsychiatric unit for definitive treatment of those issues. She reports that she has been hospitalized three other times psychiatrically, generally in her childhood, at three different hospitals, [facility], [facility], and [facility]. She reports she has outpatient services at [facility]. She endorses being on Geodon 60 mg po bid but reports that it was just increased, and she took the first dose of 60 during the morning and it really was somewhat overwhelming. She denies smoking cigarettes or any other tobacco or any other tobacco products but does endorse drinking up to 15 shots a day recently. She denies marijuana or any other illicit drug use. She has never been to rehab and never had a DUI. She reports she had a very challenging ?not so good? childhood. She reports she started having depression and suicidal thoughts, and even had suicidal attempts, the last of which was in 2017. She reports that a lot of her difficulties as a child trying to deal with trauma and neglect/emotional instability at home. She reports that in 2017 she was starting to establish herself at a better place and then her cat , that was ?my world.? She reports that she is not sure why her alcohol use has increased so much, but the challenge is that she has set herself up to start school next Sunday and she is now fearful that she has created an environment where she is going to fail. She reports that she has not taken antidepressants often because they just did not seem to be effective. She reports she struggled with depression and anxiety. She suffers with nightmares and symptoms consistent with post-traumatic stress disorder. She has a history of self-injurious behaviors, which she had also had under control with eleven months without self-harming but has recently gone back on that. We discussed the risks, benefits, and alternatives of initially following through with the increase in Geodon but do it in a more lopsided dosing with 40 in the morning and 80 at night, and she understood and agreed to proceed as is documented in this note. We also discussed the fact that she had not had Lamictal in the past and then we may want to consider that moving forward. PSYCHIATRIC HISTORY: As above. SUBSTANCE ABUSE HISTORY: As above. FAMILY HISTORY: She denies mental health issues on either side of the family, she reports addiction issues on both sides of the family. She denied any suicide attempts or completions that she is aware of. DEVELOPMENTAL HISTORY: She thinks she was about a month premature. She denies reports that she learned to walk and talk and met her developmental milestones on time. She reports when she went off to school, she did not require speech therapy, learning support, emotional support, or special education classes. PSYCHOSOCIAL HISTORY: She reports her parents were together when she was born and that they have one other child, her older brother, who is a product of that same union. She denies having any half-siblings through either of her parents. She reports that her childhood was crappy, that her dad was distant, and her mom struggled with addiction. She reports that she lived kind of in a hoarder home and at one point when she was at one of the hospitalizations in her childhood, she almost got taken out of the home because of it being in such disarray. She reports that she was bullied, and her dad was sometimes a heavy tempered individual. She reports that at one point, after her mom was sober, she got really sick and had most of her intestines taken out, and that that was a very scary time. She thinks a lot of her post-traumatic stress disorder symptoms stem from that. She did graduate from high school and is wanting to start college, but now is fearful that she might not do well, but we also talked about alternatives, maybe dropping down to non-full schedule, but still proceeding, and making sure that even this drinking behavior is not a move of self-sabotage. She endorses being a bisexual with her longest relationship being a couple months. She has never been , she has never had children, she has never been in the , and denies any holiness belief system. Her longest employment was three years at [employer]. She currently lives in a house alone with her five cats and two dogs. LEGAL HISTORY: Denied. MEDICAL HISTORY: Hypertension and obesity versus morbid obesity. Meds NPU Home Medications Medication Instructions Recorded Confirmed Last Taken Type levothyroxine 50 mcg capsule 50 mcg PO DAILY@0430 01/05/20 10/04/21 1 Day Ago History ~10/03/21 hydroxyzine HCl 25 mg tablet 25 mg PO BID PRN #180 tab 10/29/20 10/04/21 1 Day Ago Rx ~10/03/21 acetaminophen [Tylenol] 325 mg PO QID PRN 01/05/21 10/04/21 1 Day Ago History ~10/03/21 naproxen 1 tab PO Q6H PRN 01/05/21 10/04/21 1 Day Ago History ~10/03/21 propranolol 10 mg tablet 10 mg PO BID 02/25/21 10/04/21 1 Day Ago History ~10/03/21 trazodone 50 mg tablet 50 mg PO .QHS PRN #90 tab 06/24/21 10/04/21 1 Day Ago Rx ~10/03/21 naltrexone 50 mg tablet 50 mg PO .morning #30 tab 07/22/21 10/04/21 3 Weeks Ago Rx ~09/13/21 acetylcysteine 600 mg capsule 600 mg PO BID #60 cap 09/30/21 10/04/21 1 Day Ago Rx ~10/03/21 ziprasidone HCl 60 mg capsule 60 mg PO BID@08,16 #60 cap 09/30/21 10/04/21 1 Day Ago Rx ~10/03/21 Allergies Allergy/AdvReac Type Severity Reaction Status Date / Time No Known Allergies Allergy Verified 09/25/21 14:30 PFSH NPU PFSH: Medical History Alcohol use disorder, moderate, dependence Bipolar 1 disorder, mixed, moderate Borderline personality disorder History of self injurious behavior Post-traumatic stress disorder, chronic Psychiatric care Social History Smoking and tobacco status: never smoked Second hand smoke exposure: No Mental Status Exam MSE Comments: This is an obese, versus morbidly obese, white female, with bright green hair, with adequate grooming, and eye contact. No abnormal movements except for mild psychomotor retardation. Cooperative with exam in no acute distress. Speech was normal rate and volume. Mood described as rough; affect slightly subdued. Thought process, organized. Thought content: patient endorsed suicidal ideation but denied homicidal ideation. There were no delusions reported or noted, patient denied any auditory or visual hallucinations. Attention, concentration, and memory appear intact but were not formally tested. He is alert and oriented times three. Insight and judgment appear fair, impulse control is impaired. Vitals/I&O/Wt Last Vital Signs Temp 97.8 F 10/05/21 06:00 Pulse 76 10/05/21 06:00 Resp 15 10/05/21 06:00 BP 108/64 10/05/21 06:00 Pulse Ox 98 10/05/21 06:00 Weight last 48 hrs Weight 111.13 kg Data NPU : 10/04/21 10:56 10/04/21 10:56 A&P Assessment and plan (1) Suicidal ideation: Status: Acute (2) Alcohol use disorder, moderate, dependence: Status: Chronic (3) History of self injurious behavior: Status: Chronic (4) Borderline personality disorder: Status: Chronic (5) Post-traumatic stress disorder, chronic: Status: Chronic (6) Bipolar 1 disorder, mixed, moderate: Status: Chronic Additional A&P Information This is a 21-year-old, white female, with a long history of trauma, mental health issues, and recently alcohol overuse, who presents open for treatment. RECOMMENDATION AND PLAN: 1. Continue current medication. 2. Encourage individual, group, and milieu therapy. 3. Continue q-15 minute checks for safety. 4. Encourage sober living treatment at the highest level of care, to which she is willing to commit. Involuntary Hold Information 96 Hour Hold: 96 Hour Involuntary Admission: No Attestations NPU Medical Necessity Statement*: Inpatient hospitalization is medically necessary and the clinically appropriate intervention, at this time. We will monitor medications and make changes as indicated. Patient will be in the hospital for over two midnights. Likely length of stay is three to five days. Coding Level of Care Code Acute Marine Water Tender for [facility] Fwd Diagnoses Suicidal ideation R45.851 Alcohol use disorder, moderate, dependence F10.20 History of self injurious behavior Z91.5 Borderline personality disorder F60.3 Post-traumatic stress disorder, chronic F43.12 Bipolar 1 disorder, mixed, moderate F31.62
[2021-10-05] MEDS: propranolol 20 mg Tablet 10 MG PO ×2 (10:16→18:42)
[2021-10-05] MEDS: ziprasidone hcl 60 mg Capsule PO ×2 (10:16→16:01)
--- NOTE | 2021-10-05 12:57 | NPU.GN ---
[facility] Group Topic:Wheel of Positive thoughts versus Negative Thoughts General Mood of Group: Astrid was active in group today and participated. She was a bit with drawn and she eventually opened up towards the end. She struggles with negative thoughts and self -esteem, and depression . Her hygiene was good and she was kind to all in group. She is linked with [facility] [place] for [facility] , Therapy and medication provider .
[2021-10-05 14:00] VITALS: BP 135/68; PULSE 74; RESP 16; TEMP 36.9; O2SAT 100
[2021-10-05 21:18] VITALS: BP 132/79; PULSE 71; RESP 16; TEMP 36.7; O2SAT 99
[2021-10-05] MEDS: hyDROXYzine 25 mg Capsule 50 MG PO (21:22)
--- NOTE | 2021-10-06 00:16 | PC.NURSE ---
patient requested vistaril for anxiety. Effective. She is resting quietly.
[2021-10-06 05:25] VITALS: BP 117/74; PULSE 84; RESP 17; TEMP 36.9; O2SAT 99
[2021-10-06] MEDS: ziprasidone hcl 40 mg Capsule PO (10:12)
[2021-10-06] MEDS: naltrexone hcl 50 mg Tablet PO (10:13)
[2021-10-06] MEDS: levothyroxine 50 mcg Tablet PO (10:13)
[2021-10-06] MEDS: propranolol 20 mg Tablet 10 MG PO ×2 (10:13→18:31)
--- NOTE | 2021-10-06 10:35 | NPU.GN ---
[facility] Topic:Susanne did attend and participate in group. Hygiene was good and she was social with others and did well with the activity with identifying triggers, what coping mechanisms she uses that works for her and a crisis plan. She was more introverted about sharing with others in group but was sharing with this comic writer.
--- NOTE | 2021-10-06 13:47 | NPU.GN ---
[facility] 12:30-13:30 Group Group Topic: Negative and Positive Attributes verses Self Imagery General Mood of Group: Astrid did attend and participate in group. She was social and did very well with the group activity. She had positive attitude and mindset.
[2021-10-06 14:00] VITALS: BP 114/70; PULSE 76; RESP 18; TEMP 36.4; O2SAT 95
--- NOTE | 2021-10-06 14:36 | P.NPUPN_ITS ---
Subjective NPU Subjective: Interval history: She said that she has been drinking heavily since she turned 20 in August 2020. She says that she did well without cutting for most of that time. However she started having worsening depression and cutting a few weeks ago. Her Geodon was increased to 20 in the morning to 60 mg at bedtime recently but that was too much in the morning and it made her sleepy all day. It was reduced to 40 mg in the morning today and she is not overly sedated. She will have her first dose of 80 mg tonight. She is very worried about her classes that are coming up. She will be a full-time college student. 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 She will not have time to do anything including drinking. She is very worried about her concentration in college. It sounds like she has fairly classic symptoms of anxiety that goes along with PTSD. Her brain is constantly multitasking and thinking very fast. She has difficulty sleeping because of that. She cannot retain what she reads. He is irritable but she generally alternates does not lose her temper outwardly. Antidepressants have not worked very well for her but they have not been increased to a higher dose. She was told that that was necessary for this level of anxiety. She has been on citalopram, escitalopram as well as fluoxetine. She would like to try something different and agreed to try sertraline. She was told that it probably would do 400 mg before it would be effective. Mental Status Exam MSE Comments: This is a 19-year-old obese female who appears her stated age and is in no acute distress. She is dressed in hospital scrubs and was lying down in her bed. Grooming is fair psychomotor activity is normal. Speech is at a regular rate and rhythm, normal volume, good articulation, not pressured. Alert, oriented X3 Attention and concentration appears to be normal. Memory is intact Mood is depressed. Affect is mildly dysphoric. Thought process is logical and goal-directed. Thought content: Denies auditory and visual hallucinations. No delusions or paranoia are noted. Continues to have depression and thoughts of self-harm, and no homicidal ideation. Fund of knowledge is average. Insight and judgment appear to be poor. Impulse control is poor. Cognition: Patient Appearance: Appropriate Level of Consciousness: Awake, Alert, Appropriate and Follows Commands Patient Cognition Impaired: No Ability to Follow Directions: Good Patient Orientation (long list): Person, Place, Time, Name, Age and Month Comprehension Ability: No Impairment Hallucination Type: None Delusion Description: Not Present Thought Process: Appropriate Affect: Affect Description: Appropriate and Calm Behavior: Patient Behavior: Appropriate, Cooperative and Withdrawn Speech Pattern: Appropriate and Clear Vitals/I&O/Wt Last Vital Signs Temp 97.6 F 10/06/21 14:00 Pulse 76 10/06/21 14:00 Resp 18 10/06/21 14:00 BP 114/70 10/06/21 14:00 Pulse Ox 95 10/06/21 14:00 Data NPU : 10/04/21 10:56 10/04/21 10:56 Micro: Microbiology 10/04/21 10:22 Urine Culture - Final Urine,Clean Catch Microbiology 10/04/21 10:22 Urine,Clean Catch Urine Culture - Final A&P Assessment and plan (1) Suicidal ideation: Status: Acute (2) Psychiatric care: Status: Acute (3) Alcohol use disorder, moderate, dependence: Status: Chronic (4) History of self injurious behavior: Status: Chronic (5) Borderline personality disorder: Status: Chronic (6) Post-traumatic stress disorder, chronic: Status: Chronic (7) Bipolar 1 disorder, mixed, moderate: Status: Chronic Additional A&P Information This is a 21-year-old, white female, with a long history of trauma, mental health issues, and recently alcohol overuse, who presents open for treatment. RECOMMENDATION AND PLAN: 1. Continue current medication. Geodon 20 mg in the morning and 80 mg at bedtime, naltrexone 50 mg in the morning and Adderall 10 mg twice a day. We will start Zoloft 50 mg at bedtime. 2. Encourage individual, group, and milieu therapy. 3. Continue q-15 minute checks for safety. 4. Encourage sober living treatment at the highest level of care, to which she is willing to commit. Involuntary Hold Information 96 Hour Hold: 96 Hour Involuntary Admission: No Attestations NPU Medical Necessity Statement*: Inpatient hospitalization is medically necessary and the clinically appropriate intervention at this time. We will initiate medications and make changes as indicated. Coding Level of Care Code Acute Discharge Planner for [facility] Diagnoses Suicidal ideation R45.851 Psychiatric care Alcohol use disorder, moderate, dependence F10.20 History of self injurious behavior Z91.5 Borderline personality disorder F60.3 Post-traumatic stress disorder, chronic F43.12 Bipolar 1 disorder, mixed, moderate F31.62
[2021-10-06] MEDS: ziprasidone hcl 60 mg Capsule PO (18:31)
[2021-10-06] MEDS: ziprasidone hcl 40 mg Capsule 80 MG PO (18:43)
[2021-10-06] MEDS: hyDROXYzine 25 mg Capsule 50 MG PO (20:44)
[2021-10-06] MEDS: sertraline 50 mg Tablet PO (20:45)
[2021-10-06 20:52] VITALS: BP 118/68; PULSE 90; RESP 18; O2SAT 97
--- NOTE | 2021-10-06 21:20 | PC.NURSE ---
Removed aprox. fifteen suture from lacerations on left lower leg. Patient tolerated well.
--- NOTE | 2021-10-07 04:40 | PC.NURSE ---
Patient requested meds for anxiety before bed. Vistaril 50 mg given and it was effective.
[2021-10-07 05:33] VITALS: BP 126/68; PULSE 87; RESP 17; TEMP 36.6; O2SAT 96
[2021-10-07] MEDS: propranolol 20 mg Tablet 10 MG PO ×2 (08:44→18:28)
[2021-10-07] MEDS: naltrexone hcl 50 mg Tablet PO (08:44)
[2021-10-07] MEDS: ziprasidone hcl 40 mg Capsule PO (08:45)
[2021-10-07] MEDS: levothyroxine 50 mcg Tablet PO (08:45)
--- NOTE | 2021-10-07 10:03 | W.PM.NPUPNS ---
Subjective NPU Subjective: Interval history: She says that today is a good day. She slept well last night. It was the best she has slept since she has been out. Possibly attributed to the Geodon 80 mg which she took for the first time last night. Her suicidal ideation is better than usual this morning. 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 She has an appointment with a psychiatrist at [facility] on October 28. She also has a therapist and case coordinator there. She understands that her mood is labile but she anticipates that today will be a good day and she will be ready for discharge tomorrow. She received Zoloft 50 mg at bedtime last night without any side effects. Mental Status Exam MSE Comments: This is a 19-year-old obese female who appears her stated age and is in no acute distress. She is dressed in hospital scrubs and was lying down in her bed. Grooming is fair psychomotor activity is normal. Speech is at a regular rate and rhythm, normal volume, good articulation, not pressured. Alert, oriented X3 Attention and concentration appears to be normal. Memory is intact Mood is depressed but better. Affect is cheerful. Thought process is logical and goal-directed. Thought content: Denies auditory and visual hallucinations. No delusions or paranoia are noted. Continues to have depression and thoughts of self-harm but better, and no homicidal ideation. Fund of knowledge is average. Insight and judgment appear to be poor. Impulse control is poor. Cognition: Patient Appearance: Appropriate Level of Consciousness: Awake, Alert, Appropriate and Follows Commands Patient Cognition Impaired: No Ability to Follow Directions: Good Patient Orientation (long list): Person, Place, Time, Name, Age and Month Comprehension Ability: No Impairment Hallucination Type: None Delusion Description: Not Present Thought Process: Appropriate Affect: Affect Description: Appropriate and Calm Behavior: Patient Behavior: Appropriate, Cooperative and Withdrawn Speech Pattern: Appropriate and Clear Vitals/I&O/Wt Last Vital Signs Temp 97.9 F 10/07/21 05:33 Pulse 87 10/07/21 05:33 Resp 17 10/07/21 05:33 BP 126/68 10/07/21 05:33 Pulse Ox 96 10/07/21 05:33 Data NPU : 10/04/21 10:56 10/04/21 10:56 Micro: Microbiology 10/04/21 10:22 Urine Culture - Final Urine,Clean Catch Microbiology 10/04/21 10:22 Urine,Clean Catch Urine Culture - Final A&P Assessment and plan (1) Suicidal ideation: Status: Acute (2) Psychiatric care: Status: Acute (3) Alcohol use disorder, moderate, dependence: Status: Chronic (4) History of self injurious behavior: Status: Chronic (5) Borderline personality disorder: Status: Chronic (6) Post-traumatic stress disorder, chronic: Status: Chronic (7) Bipolar 1 disorder, mixed, moderate: Status: Chronic Additional A&P Information This is a 21-year-old, white female, with a long history of trauma, mental health issues, and recently alcohol overuse, who presents open for treatment. RECOMMENDATION AND PLAN: 1. Continue current medication. Geodon 40 mg in the morning and 80 mg at bedtime, naltrexone 50 mg in the morning and Adderall 10 mg twice a day. Continue Zoloft 50 mg at bedtime. 2. Encourage individual, group, and milieu therapy. 3. Continue q-15 minute checks for safety. 4. Encourage sober living treatment at the highest level of care, to which she is willing to commit. Involuntary Hold Information 96 Hour Hold: 96 Hour Involuntary Admission: No Attestations NPU Medical Necessity Statement*: Inpatient hospitalization is medically necessary and the clinically appropriate intervention at this time. We will initiate medications and make changes as indicated. Coding Level of Care Code Acute Senior Specialist for [facility] Diagnoses Suicidal ideation R45.851 Psychiatric care Alcohol use disorder, moderate, dependence F10.20 History of self injurious behavior Z91.5 Borderline personality disorder F60.3 Post-traumatic stress disorder, chronic F43.12 Bipolar 1 disorder, mixed, moderate F31.62
[2021-10-07 13:03] VITALS: BP 102/66; PULSE 79; RESP 17; TEMP 36.6; O2SAT 99
[2021-10-07] MEDS: ziprasidone hcl 40 mg Capsule 80 MG PO (18:28)
[2021-10-07] MEDS: sertraline 50 mg Tablet PO (20:18)
[2021-10-07] MEDS: hyDROXYzine 25 mg Capsule 50 MG PO (20:19)
[2021-10-07 20:49] VITALS: BP 150/95; PULSE 80; RESP 18; TEMP 37.2; O2SAT 98
--- NOTE | 2021-10-08 00:51 | PC.NURSE ---
Patient rrequested med for anxiety. Vistaril 50 mg given. It was effective.
[2021-10-08 05:53] VITALS: BP 143/94; PULSE 78; RESP 17; TEMP 36.8; O2SAT 96
--- NOTE | 2021-10-08 07:15 | W.PM.NPUDCS ---
Diagnoses at Discharge Discharge Diagnosis (1) Suicidal ideation: Status: Acute (2) Psychiatric care: Status: Acute (3) Alcohol use disorder, moderate, dependence: Status: Chronic (4) History of self injurious behavior: Status: Chronic (5) Borderline personality disorder: Status: Chronic (6) Post-traumatic stress disorder, chronic: Status: Chronic (7) Bipolar 1 disorder, mixed, moderate: Status: Chronic Reason for Visit Reason for Visit: Mental Health Exam Brief History: HPI NPU History of Present Illness Astrid Liu is a 21 year old female who presented to the emergency department report: Chief Complaint: Psychiatric Symptoms Stated Complaint: Mental Health Exam Time Seen by Provider: 10/04/21 10:10 History of Present Illness: HPI Narrative: Patient states he is having suicidal thoughts. She has not acted on the thoughts but she has a plan to cut her neck. She was sent here by her [employer] worker. 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 Patient's had 3 psych admissions as pediatric patient for suicidal ideations. Patient has history of PTSD. Admits to cutting on a regular basis MD complaint: suicidal ideation Onset (ago): week(s) Duration: constant and getting worse History of same: Yes Exacerbating factors: alcohol Context: recent alcohol abuse Associated psychiatric symptoms: depression and suicidal ideation Associated symptoms: Reports no associated symptoms, depression and suicidal ideation Treatments prior to arrival: other ([facility]) If self harm: admits thoughts of self harm and has plan. She was admitted to the neuropsychiatric unit for definitive treatment of those issues. She reports that she has been hospitalized three other times psychiatrically, generally in her childhood, at three different hospitals, [facility], and [facility]. She reports she has outpatient services at [facility]. She endorses being on Geodon 60 mg po bid but reports that it was just increased, and she took the first dose of 60 during the morning and it really was somewhat overwhelming. She denies smoking cigarettes or any other tobacco or any other tobacco products but does endorse drinking up to 15 shots a day recently. She denies marijuana or any other illicit drug use. She has never been to rehab and never had a DUI. She reports she had a very challenging ?not so good? childhood. She reports she started having depression and suicidal thoughts, and even had suicidal attempts, the last of which was in 2017. She reports that a lot of her difficulties as a child trying to deal with trauma and neglect/emotional instability at home. She reports that in 2017 she was starting to establish herself at a better place and then her cat , that was ?my world.? She reports that she is not sure why her alcohol use has increased so much, but the challenge is that she has set herself up to start school next Sunday and she is now fearful that she has created an environment where she is going to fail. She reports that she has not taken antidepressants often because they just did not seem to be effective. She reports she struggled with depression and anxiety. She suffers with nightmares and symptoms consistent with post-traumatic stress disorder. She has a history of self-injurious behaviors, which she had also had under control with eleven months without self-harming but has recently gone back on that. We discussed the risks, benefits, and alternatives of initially following through with the increase in Geodon but do it in a more lopsided dosing with 40 in the morning and 80 at night, and she understood and agreed to proceed as is documented in this note. We also discussed the fact that she had not had Lamictal in the past and then we may want to consider that moving forward. PSYCHIATRIC HISTORY: As above. SUBSTANCE ABUSE HISTORY: As above. FAMILY HISTORY: She denies mental health issues on either side of the family, she reports addiction issues on both sides of the family. She denied any suicide attempts or completions that she is aware of. DEVELOPMENTAL HISTORY: She thinks she was about a month premature. She denies reports that she learned to walk and talk and met her developmental milestones on time. She reports when she went off to school, she did not require speech therapy, learning support, emotional support, or special education classes. PSYCHOSOCIAL HISTORY: She reports her parents were together when she was born and that they have one other child, her older brother, who is a product of that same union. She denies having any half-siblings through either of her parents. She reports that her childhood was crappy, that her dad was distant, and her mom struggled with addiction. She reports that she lived kind of in a hoarder home and at one point when she was at one of the hospitalizations in her childhood, she almost got taken out of the home because of it being in such disarray. She reports that she was bullied, and her dad was sometimes a heavy tempered individual. She reports that at one point, after her mom was sober, she got really sick and had most of her intestines taken out, and that that was a very scary time. She thinks a lot of her post-traumatic stress disorder symptoms stem from that. She did graduate from high school and is wanting to start college, but now is fearful that she might not do well, but we also talked about alternatives, maybe dropping down to non-full schedule, but still proceeding, and making sure that even this drinking behavior is not a move of self-sabotage. She endorses being a bisexual with her longest relationship being a couple months. She has never been , she has never had children, she has never been in the , and denies any oriental orthodox belief system. Her longest employment was three years at [employer]. She currently lives in a house alone with her five cats and two dogs. LEGAL HISTORY: Denied. MEDICAL HISTORY: Hypertension and obesity versus morbid obesity. Hospital Course Hospital Course She slowly acclimated to the individual, group and milieu therapies provided. Medications were continued except for Geodon was changed to 40 in the morning and 80 at bedtime and 50 mg at bedtime. She tolerated these doses and showed steady improvement during her stay. She was able to contract for safety outside hospital prior to discharge. During the hospitalization, patient had routine laboratory studies which were within normal limits except for few outliers. Additionally there was a general medical evaluation which was also within normal limits and revealed no new acute processes. Discharge Summary: At the time of discharge, lethality was denied and psychosis was resolving. Mood and anxiety were well managed. Patient endorsed a plan to follow-up with the aftercare recommendations of the treatment team. Patient was evaluated and deemed to be absent credible lethality, and had achieved the maximum benefit from an inpatient hospitalization, so was discharged. Involuntary Hold Information 96 Hour Hold: 96 Hour Involuntary Admission: No Mental Status Exam MSE Comments: This is a 19-year-old obese female who appears her stated age and is in no acute distress. She is dressed in hospital scrubs and was lying down in her bed. Grooming is fair psychomotor activity is normal. Speech is at a regular rate and rhythm, normal volume, good articulation, not pressured. Alert, oriented X3 Attention and concentration appears to be normal. Memory is intact Mood is depressed but better. Affect is cheerful. Thought process is logical and goal-directed. Thought content: Denies auditory and visual hallucinations. No delusions or paranoia are noted. Continues to have depression and thoughts of self-harm but better, and no homicidal ideation. Fund of knowledge is average. Insight and judgment appear to be poor. Impulse control is poor. Cognition: Patient Appearance: Appropriate Level of Consciousness: Awake, Alert, Appropriate and Follows Commands Patient Cognition Impaired: No Ability to Follow Directions: Good Patient Orientation (long list): Person, Place, Time, Name, Age and Month Comprehension Ability: No Impairment Hallucination Type: None Delusion Description: Not Present Thought Process: Appropriate Affect: Affect Description: Appropriate Behavior: Patient Behavior: Appropriate and Cooperative Speech Pattern: Appropriate and Clear Discharge Data Vitals: Last Vital Signs Temp 98.3 F 10/08/21 05:53 Pulse 78 10/08/21 05:53 Resp 17 10/08/21 05:53 BP 143/94 10/08/21 05:53 Pulse Ox 96 10/08/21 05:53 Discharge Plan Discharge Condition: Stable Prescriptions: New ziprasidone HCl 40 mg Capsule 40 mg PO 0700 30 Days Qty: 30 RF: 1 ziprasidone HCl 40 mg Capsule 80 mg PO 1700 30 Days Qty: 60 RF: 1 sertraline 50 mg Tablet 50 mg PO BEDTIME 30 Days Qty: 30 RF: 1 Continued hydroxyzine HCl 25 mg tablet 25 mg PO BID PRN (Reason: anxiety) Qty: 180 RF: 2 levothyroxine 50 mcg capsule 50 mcg PO DAILY@0430 RF: 0 acetylcysteine 600 mg capsule 600 mg PO BID Qty: 60 RF: 3 acetaminophen [Tylenol] 325 mg Tablet 325 mg PO QID PRN (Reason: Pain) RF: 0 naproxen 1 tab PO Q6H PRN (Reason: Pain) RF: 0 trazodone 50 mg tablet 50 mg PO .QHS PRN (Reason: insomnia) 30 Days Qty: 30 RF: 1 naltrexone 50 mg tablet 50 mg PO .morning 30 Days Qty: 30 RF: 1 propranolol 10 mg tablet 10 mg PO BID 30 Days Qty: 60 RF: 1 Discontinued trazodone 50 mg tablet 50 mg PO .QHS PRN (Reason: insomnia) Qty: 90 RF: 2 ziprasidone HCl [Geodon] 60 mg capsule 60 mg PO BID@08,16 Qty: 60 RF: 3 Discharge Orders: Discharge Order (Routine); Ordered 10/08/21 Ordered By: Mika Todd Referrals: [facility] [Outside] - 10/28/21 8:00 am (Mary Kay Steinberg) Jose Garcia MD [Primary Care Provider] - () Discharge Diet: Regular Discharge Activity: Resume usual activity Patient Instructions: Opioid Safety Discharge Attestations NPU Time Spent in Discharge Care*: greater than 30 min Specific Discharge Activities: Specific discharge activities: educating patient, discussing with field nurse case manager/social workers/dc planners, documenting/other paperwork and evaluating patient/reviewing data Coding Level of Care Code Acute [facility] [place] note Diagnoses Suicidal ideation R45.851 Psychiatric care Alcohol use disorder, moderate, dependence F10.20 History of self injurious behavior Z91.5 Borderline personality disorder F60.3 Post-traumatic stress disorder, chronic F43.12 Bipolar 1 disorder, mixed, moderate F31.62
[2021-10-08 07:29] VITALS: BP 143/94; PULSE 78; RESP 17; TEMP 36.8; O2SAT 96
[2021-10-08] MEDS: levothyroxine 50 mcg Tablet PO (07:35)
[2021-10-08] MEDS: naltrexone hcl 50 mg Tablet PO (07:35)
[2021-10-08] MEDS: propranolol 20 mg Tablet 10 MG PO (07:35)
[2021-10-08] MEDS: ziprasidone hcl 40 mg Capsule PO (07:35)
== END 2021-10-08 07:42 | disposition home or self-care (01) | DRG 885 ==
LOC: ER 12:52 → NP 10-06 09:55
PROVIDERS: Admitting Provider Psychiatry & Neurology Psychiatry; Emergency Provider Nurse Practitioner Family; PCP Family Medicine; Visit Provider Psychiatry & Neurology Psychiatry
DX: F31.62 Bipolar disorder, current episode mixed, moderate (principal); R45.851 Suicidal ideations; Z68.41 Body mass index [BMI] 40.0-44.9, adult; F10.20 Alcohol dependence, uncomplicated; F60.3 Borderline personality disorder; F43.12 Post-traumatic stress disorder, chronic; I10 Essential (primary) hypertension; E66.01 Morbid (severe) obesity due to excess calories
CPT/HCPCS: 36415; 80053; 80306; 80307; 81001; 85025; 87086; 90471; 90686; 97150; 97165

== ENCOUNTER → 2022-06-21 08:43 | Outpatient (BNVA) | payer OTHER, SELFPAY ==
[2021-10-11 16:50] VITALS: BP 143/94; BMI 42.0
== END ==
PROVIDERS: PCP Family Medicine; Visit Provider Nurse Practitioner Psychiatric/Mental Health
DX: Z03.89 Encounter for observation for other suspected diseases and conditions ruled out (principal); Z79.899 Other long term (current) drug therapy
CPT/HCPCS: 80053; 80061; 80307; 83036

== ENCOUNTER 2022-07-20 14:45 | Outpatient (CLI) | payer OTHER, SELFPAY ==
[2021-10-11 16:50] VITALS: BP 143/94; BMI 42.0
== END 2022-07-20 14:46 | disposition home or self-care (01) ==
LOC: SLEEP 07-21 10:05
PROVIDERS: PCP Family Medicine; Visit Provider Family Medicine
DX: G47.10 Hypersomnia, unspecified (principal)
CPT/HCPCS: G0399

== ENCOUNTER → 2022-08-11 10:23 | Outpatient (BNVA) | payer OTHER, SELFPAY ==
[2021-10-11 16:50] VITALS: BP 143/94; BMI 42.0
== END ==
PROVIDERS: PCP Family Medicine; Visit Provider Clinical Nurse Specialist Adult Health
DX: E03.9 Hypothyroidism, unspecified (principal)
CPT/HCPCS: 84436; 84443; 84481

== ENCOUNTER → 2022-10-31 09:20 | Outpatient (BNVA) | payer OTHER, SELFPAY ==
[2021-10-11 16:50] VITALS: BP 143/94; BMI 42.0
== END ==
PROVIDERS: PCP Family Medicine; Visit Provider Nurse Practitioner Psychiatric/Mental Health
DX: F31.62 Bipolar disorder, current episode mixed, moderate (principal); Z79.899 Other long term (current) drug therapy
CPT/HCPCS: 80061; 83036

== ENCOUNTER 2022-11-16 08:25 | Outpatient (CLI) | payer OTHER, SELFPAY ==
[2021-10-11 16:50] VITALS: BP 143/94; BMI 42.0
[2022-11-10 15:12] VITALS: BP 140/108; BMI 42.1
--- NOTE | 2022-11-16 08:45 | US_ITS ---
WS: [id number] TRANSABDOMINAL PELVIC ULTRASOUND HISTORY: Pelvic pain. COMPARISON: None available. Uterus: 8.0 cm x 4.1 cm x 2.8 cm. Normal size and echogenicity. No fibroids are identified. Endometrium: 0.3 cm. Normal homogeneity and size. Right ovary: 2.1 cm x 3.3 cm x 1.5 cm; no solid or cystic mass. Normal vascularity. Left ovary: 3.6 cm x 3.2 cm x 2.1 cm; no solid or cystic mass. Normal vascularity. No free fluid in the cul-de-sac. US/US pelvic complete* [id number] IMPRESSION: Unremarkable transabdominal pelvic ultrasound.
== END 2022-11-16 08:26 | disposition home or self-care (01) ==
PROVIDERS: PCP Family Medicine; Visit Provider Internal Medicine
DX: R10.2 Pelvic and perineal pain (principal)
CPT/HCPCS: 76856

== ENCOUNTER → 2022-12-14 15:13 | Outpatient (BNVA) | payer OTHER, SELFPAY ==
[2022-11-10 15:12] VITALS: BP 140/108; BMI 42.1
== END ==
PROVIDERS: PCP Family Medicine; Visit Provider Internal Medicine
DX: E28.2 Polycystic ovarian syndrome (principal); E03.9 Hypothyroidism, unspecified
CPT/HCPCS: 36415; 84439; 84443; 84480

== ENCOUNTER 2023-01-11 21:36 | Emergency (ER) | payer OTHER, SELFPAY ==
[2022-11-10 15:12] VITALS: BP 140/108; BMI 42.1
[2023-01-11 21:43] VITALS: BP 125/81; PULSE 89; RESP 16; TEMP 36.9; O2SAT 99; BMI 42.0
--- NOTE | 2023-01-11 22:00 | XRR_ITS ---
PROCEDURE INFORMATION: Exam: XR Right Knee Exam date and time: 01/11/2023 10:19 PM Age: 22 years old Clinical indication: Pain; Knee; Right; Additional info: Knee pain TECHNIQUE: Imaging protocol: Radiologic exam of the right knee. Views: 3 views. COMPARISON: No relevant prior studies available. FINDINGS: Bones/joints: No acute fracture. No dislocation. Normal bone mineralization. No joint effusion. Joint spaces are maintained. Soft tissues: No soft tissue swelling. No radiopaque foreign body. XR/XR knee RT 3V* [id number] IMPRESSION: Negative radiographs of the right knee. Followup imaging recommended in 7-14 days if clinical concern for fracture persists.
[2023-01-11 22:27] VITALS: BP 124/81; PULSE 90; RESP 16; O2SAT 97
--- NOTE | 2023-01-11 22:35 | ED_ITS ---
HPI - Extremity Problem General: Chief complaint: Extremity Injury, Lower Stated complaint: Right Knee pain Time Seen by Provider: 01/11/23 21:59 History of Present Illness: Patient reports that they were just jumping backwards onto the couch and felt a pop of the right knee. They report that the right knee would not move at all and there was excruciating pain. The patient actually thinks that the knee was dislocated. The patient believes that during the jarring and transferring to the ambulance that the knee popped back into place. The patient reports that they are able to flex and extend the knee where they were unable to before. Associated symptoms: Deny fever(s) Review of Systems Const: Denies: fever(s) or chills Resp: Denies: dyspnea, productive cough or non-productive cough Musc: Reports: extremity pain, joint pain and joint swelling PFSH ED PFSH: Medical History Alcohol use disorder, severe, in early remission, dependence Last use 03/12/22 Bipolar 1 disorder, mixed, moderate Borderline personality disorder Hypothyroidism Morbid obesity Post-traumatic stress disorder, chronic Psychiatric care Self-injurious behavior last self harm on 10/30/22 Social History Smoking and tobacco status: never smoked Quit status (tobacco): has tried quititng Second hand smoke exposure: No Smoking risk assessment/counseling performed?: No Alcohol intake: former Year of sobriety/quit date alcohol: 03/12 Desire information about alcohol rehabilitation?: No Counseling given: No Substance/Drug Use: never Desire information about substance/drug rehabilitation?: No Counseling given: No Female Reproductive History: Date of last menstrual period: 12/27/22 Physical Exam Const: COMMON NORMALS: no acute distress, patient oriented x3 and alert OTHER: Patient is unkempt, covered in animal hair on their clothing. There are numerous scarred horizontal lesions down both legs lower legs and thighs in various stages of healing. These appear consistent with self-harm which patient does have a history of. Extremity: NARRATIVE EXTREMITY EXAM: Tenderness to palpation medial and collateral ligament right knee. Patient is able to flex and extend the knee has pain with bearing any weight. Minimal swelling appreciated. No obvious bony deformity. Yes and within normal limits to the distal leg. Neuro: COMMON NORMALS: patient oriented x3 SENSORIUM/ORIENTATION: Yes alert Course Vital Signs: Vital signs: Vital Signs Temperature 98.4 F 01/11/23 21:43 Pulse Rate 90 01/11/23 22:27 Respiratory Rate 16 01/11/23 22:27 Blood Pressure 124/81 01/11/23 22:27 Pulse Oximetry 97 01/11/23 22:27 Oxygen Delivery Me thod Room Air 01/11/23 22:27 MDM - Extremity (Nontraumatic) Medical Decision Making Knee sprain, internal derangement, fracture X-ray knee 3 views wet read: No acute osseous deformity We will treat patient conservatively with Jamal wrap and crutches. Patient has crutches at home. Advised patient to elevate, rest the knee. Reduce weightbearing for the next 5 to 7 days. Follow-up with primary care provider if symptoms are persisting. Return to the ER for any new or worsening symptoms Lab Data Radiology Impressions Knee X-Ray 01/11/23 22:00 IMPRESSION: Negative radiographs of the right knee. Followup imaging recommended in 7-14 days if clinical concern for fracture persists. Discharge Plan Discharge Patient Disposition: Home Clinical Impression: Sprain of right knee Condition: Stable Prescriptions: No Action lamotrigine [Lamictal] 200 mg tablet 200 mg PO .morning Qty: 30 3RF Rx Instructions: Take one tablet every morning lamotrigine [Lamictal] 25 mg tablet 25 mg PO .morning 30 Days Qty: 30 2RF Rx Instructions: Take one tablet every morning with 200 mg tab, total dose 225 mg propranolol 20 mg tablet 20 mg PO BID 90 Days Qty: 180 3RF Vivitrol 380 mg suspension,extended rel recon 380 mg IM .Q28 days Qty: 1 2RF metformin 500 mg tablet extended release 24 hr 1,000 mg PO BID Qty: 180 2RF Rx Instructions: 500mg 2 tabs BID acetylcysteine 600 mg capsule 600 mg PO BID Qty: 180 1RF Rx Instructions: Take one capsule twice per day hydroxyzine HCl 25 mg tablet 25 mg PO TID PRN (Reason: anxiety) Qty: 270 1RF Rx Instructions: Take one tablet three times per day as needed for anxiety ziprasidone HCl [Geodon] 60 mg capsule 60 mg PO .evening Qty: 90 1RF Rx Instructions: Take one capsule at 5 pm with 500 calories levothyroxine 50 mcg capsule 50 mcg PO DAILY@0430 Qty: 30 11RF omeprazole 20 mg capsule,delayed release(DR/EC) 20 mg PO BID Qty: 60 5RF acetaminophen [Tylenol] 325 mg Tablet 325 mg PO QID PRN (Reason: Pain) Discharge Orders: Discharge ED (Routine); Ordered 01/11/23 Ordered By: Anna Garnett Referrals: Jose Garcia MD [Primary Care Provider] - Discharge Diet: Usual diet Discharge Activity: Limit activity as instructed Patient Instructions: Knee Sprain (ED) Activity Restrictions/Additional Instructions: Jamal wrap for swelling and pain. Use crutches for the next 5 to 7 days to reduce weightbearing on the knee. Ice, rest, elevate the extremity at home. Use Tylenol and Motrin as needed for pain and swelling. Follow-up with primary care provider in 5-7 days for reevaluation. 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
== END 2023-01-11 22:47 | disposition home or self-care (01) ==
PROVIDERS: Emergency Provider Nurse Practitioner Family; PCP Family Medicine
DX: S83.91XA Sprain of unspecified site of right knee, initial encounter (principal); Z79.84 Long term (current) use of oral hypoglycemic drugs; X58.XXXA Exposure to other specified factors, initial encounter
CPT/HCPCS: 73562; 99283

== ENCOUNTER 2023-01-15 16:37 | Outpatient (CLI) | payer OTHER, SELFPAY ==
[2022-11-10 15:12] VITALS: BP 140/108; BMI 42.1
--- NOTE | 2023-01-15 17:00 | USCV_ITS ---
Astrid Liu Age: 22 Gender: F : 2000 Exam Date: 01/15/2023 17:11 Ordering Phys: Roddy Guevara NP Technologist: DEREK [place] [facility] [place]: Rt leg/calf pain HISTORY: Lower extremity swelling. Lower extremity pain. PROCEDURES: Venous duplex imaging was performed in only the right lower extremity. The following venous structures were evaluated: common femoral vein, profunda vein, proximal portion of the greater saphenous vein, superficial femoral vein, and the popliteal vein. In addition, the posterior tibial and peroneal trunk were evaluated. Serial compression, augmentation maneuvers, and spectral Doppler flow evaluation were performed. FINDINGS: Appears to have an acute DVT in popliteal vein CONCLUSIONS Acute Occlusive DVT RIGHT popliteal vein Remainder RIGHT LE patent [employer] notified Roddy Guevara NP at time of exam Yuriy De La Cruz MD (Electronically Signed) Final Date: 16 January 2023 10:07 S
== END 2023-01-15 16:38 | disposition home or self-care (01) ==
LOC: RAD 16:41
PROVIDERS: PCP Family Medicine; Visit Provider Clinical Nurse Specialist Adult Health
DX: I82.431 Acute embolism and thrombosis of right popliteal vein (principal)
CPT/HCPCS: 93971

== ENCOUNTER → 2023-01-21 12:08 | Outpatient (BNVA) | payer SELFPAY ==
[2022-11-10 15:12] VITALS: BP 140/108; BMI 42.1
== END ==
PROVIDERS: PCP Family Medicine; Visit Provider Registered Nurse Neonatal Intensive Care
DX: J02.9 Acute pharyngitis, unspecified (principal)
CPT/HCPCS: 87071; 87880

== ENCOUNTER → 2023-01-30 14:13 | Outpatient (BNVA) | payer OTHER, SELFPAY ==
[2022-11-10 15:12] VITALS: BP 140/108; BMI 42.1
== END ==
PROVIDERS: PCP Family Medicine; Visit Provider Nurse Practitioner Psychiatric/Mental Health
DX: Z79.899 Other long term (current) drug therapy (principal)
CPT/HCPCS: 80053; 80307

== ENCOUNTER 2023-02-15 15:55 | Emergency (ER) | payer OTHER, SELFPAY ==
[2022-11-10 15:12] VITALS: BP 140/108; BMI 42.1
[2023-02-15 16:00] VITALS: BP 145/94; PULSE 89; RESP 15; TEMP 36.7; O2SAT 99
[2023-02-15 17:19] LABS: HCG, Serum Qual Negative (Negative)
[2023-02-15 17:27] LABS: Alanine Aminotransferase 23 U/L (0-33); Albumin Level 4.8 g/dL (3.5-5.2); Alkaline Phosphatase 86 U/L (35-105); Anion Gap 17.1 (5-19); Aspartate Amino Transferase 22 U/L (0-32); Blood Urea Nitrogen 9 mg/dL (6-20); Calcium 8.9 mg/dL (8.5-10.5); Carbon Dioxide 24 mmol/L (22-29); Chloride 104 mmol/L (98-107); Globulin 2.9 g/dL (1.3-4.6); Glomerular Filtration Rate 88.9 mL/min (90-130); Glucose 87 mg/dL (65-115); Osmolality Calculated 290 mOsm/kg (285-295); Potassium 4.1 mmol/L (3.5-5.1); Sodium 141 mmol/L (136-145); Total Bilirubin 0.2 mg/dL (0.15-1.2); Total Protein 7.7 g/dL (6.6-8.7)
--- NOTE | 2023-02-15 17:40 | ED_ITS ---
Documented by User: UCHE Feliz 02/15/23 18:10 HPI - Female Genitourinary General: Chief complaint: Vaginal Bleeding Stated complaint: blood thinner trouble Time Seen by Provider: 02/15/23 16:23 History of Present Illness: Patient is in today for heavy vaginal bleeding. They report that they started their menstrual cycle yesterday and it has been very heavy. They report that they are on Eliquis for the past month for a blood clot. They report that they are going through approximately 1 normal tampon per hour with some clots. They deny any other symptoms including dizziness, shortness of breath, feeling faint. They deny fever or chills. They deny any possibility of . Associated symptoms: Deny abdominal pain, headache(s), nausea or syncope Review of Systems Const: Denies: fever(s), chills or body aches Card: Denies: chest pain, palpitations, irregular heart rhythm, lightheadedness or syncope Resp: Denies: dyspnea, productive cough or non-productive cough GI: Denies: abdominal pain, nausea or vomiting : Reports: vaginal bleeding and change in menstrual flow Musc: Denies: neck pain or back pain Neuro: Denies: headache(s), numbness in extremities or weakness in extremities PFSH ED PFSH: Medical History Alcohol use disorder, severe, in early remission, dependence Last use 03/12/22 Bipolar 1 disorder, mixed, moderate Borderline personality disorder Hypothyroidism Morbid obesity Post-traumatic stress disorder, chronic Psychiatric care Self-injurious behavior last self harm on 10/30/22 Social History Smoking and tobacco status: never smoked Quit status (tobacco): has tried quititng Second hand smoke exposure: No Smoking risk assessment/counseling performed?: No Alcohol intake: former Year of sobriety/quit date alcohol: 03/12 Desire information about alcohol rehabilitation?: No Counseling given: No Substance/Drug Use: never Desire information about substance/drug rehabilitation?: No Counseling given: No Physical Exam Const: COMMON NORMALS: no acute distress, patient oriented x3 and alert GENERAL APPEARANCE: cooperative ORIENTATION/CONSCIOUSNESS: Yes awake, Yes oriented to person, Yes oriented to place and Yes oriented to time Resp: COMMON NORMALS: normal respiratory effort, No retractions, No use of accessory muscles and clear to auscultation bilaterally EFFORT & INSPECTION: Yes symmetric chest movement AUSCULTATION: clear to auscultation bilaterally Cardio: COMMON NORMALS: regular rate, regular rhythm, S1 normal heart sound present and S2 normal heart sound present RATE: regular rate RHYTHM: regular rhythm HEART SOUNDS: S1 normal heart sound present and S2 normal heart sound present GI: COMMON NORMALS: Normal to inspection, nondistended, normoactive bowel sounds present, Soft to palpation, non-tender, No hepatosplenomegaly present, no masses and no bruits INSPECTION: Yes normal to inspection PALPATION: Yes Soft to palpation and Yes No hepatosplenomegaly present : COMMON NORMALS: Yes no CVA tenderness, Yes normal external appearance, Yes normal appearance of the vagina, Yes normal bimanual exam and Yes No adnexal tenderness BLADDER/KIDNEY EXAM: Yes no CVA tenderness BIMANUAL EXAM - VAGINA & UTERUS: Yes normal bimanual exam OB/EXTERNAL & SPECULUM: Active bleeding present medium/moderate Back/Pelvis: COMMON NORMALS: no CVA tenderness Neuro: COMMON NORMALS: patient oriented x3 SENSORIUM/ORIENTATION: Yes alert, Yes oriented to person, Yes oriented to place and Yes oriented to time Course Vital Signs: Vital signs: Vital Signs Temperature 98.0 F 02/15/23 16:00 Pulse Rate 81 02/15/23 18:52 Respiratory Rate 16 02/15/23 18:52 Blood Pressure 118/58 02/15/23 18:52 Pulse Oximetry 98 02/15/23 18:52 Oxygen Delivery Me thod Room Air 02/15/23 16:00 [facility] - Female Medical Decision Making Patient is in for heavy vaginal bleeding. She is on Eliquis for recurrent DVT. Hemoglobin?13 Pelvic exam normal with the exception of mild to moderate bleeding noted at the cervical os. Patient is in no acute distress. Vital signs are stable. We will discharge patient home to follow-up with Tomorrow. Monitor closely and return to the ER for any new or worsening symptoms. Patient is very agreeable with plan of care and ready for discharge. Lab Data 02/15/23 16:55 02/15/23 16:55 Laboratory Results WBC 8.4 10^3/uL (4.0-10.0) 02/15/23 16:55 RBC 4.57 10^6/uL (4.1-5.3) 02/15/23 16:55 Hgb 13.0 g/dL (11.5-15.3) 02/15/23 16:55 Hct 40.1 % (37.0-47.0) 02/15/23 16:55 MCV 87.7 fl (81-99) 02/15/23 16:55 MCH 28.4 pg (28.0-34.0) 02/15/23 16:55 MCHC 32.4 g/dL (30.0-36.0) 02/15/23 16:55 RDW 12.2 % (12.1-15.1) 02/15/23 16:55 Plt Count 266 10^3/cmm (130-400) 02/15/23 16:55 MPV 10.4 fL (7.4-10.4) 02/15/23 16:55 Neut % (Auto) 56.6 % 02/15/23 16:55 Lymph % (Auto) 32.9 % 02/15/23 16:55 [place] % (Auto) 7.7 % 02/15/23 16:55 Eos % (Auto) 1.9 % 02/15/23 16:55 Baso % (Auto) 0.8 % 02/15/23 16:55 Neut # (Auto) 4.77 10^3/uL (1.8-7.7) 02/15/23 16:55 Lymph # (Auto) 2.8 10^3/uL (0.8-4.8) 02/15/23 16:55 [place] # (Auto) 0.7 10^3/uL (0.2-0.9) 02/15/23 16:55 Eos # (Auto) 0.2 10^3/uL (0.0-0.8) 02/15/23 16:55 Baso # (Auto) 0.1 10^3/uL (0.0-0.1) 02/15/23 16:55 Nucleated RBC % (auto) 0 % 02/15/23 16:55 Nucleated RBCs # 0.0 /100WBC 02/15/23 16:55 PT 12.90 SECONDS (12.1-14.9) 02/15/23 16:55 INR 0.95 (0.8-1.2) 02/15/23 16:55 APTT 27.3 SECONDS (23.9-36.7) 02/15/23 16:55 Sodium 141 mmol/L (136-145) 02/15/23 16:55 Potassium 4.1 mmol/L (3.5-5.1) 02/15/23 16:55 Chloride 104 mmol/L (98-107) 02/15/23 16:55 Carbon Dioxide 24 mmol/L (22-29) 02/15/23 16:55 Anion Gap 17.1 (5-19) 02/15/23 16:55 BUN 9 mg/dL (6-20) 02/15/23 16:55 Creatinine 0.8 mg/dL (0.5-0.9) 02/15/23 16:55 GFR Calculation 88.9 mL/min (90-130) L 02/15/23 16:55 Glucose 87 mg/dL (65-115) 02/15/23 16:55 Calculated Osmolality 290 mOsm/kg (285-295) 02/15/23 16:55 Calcium 8.9 mg/dL (8.5-10.5) 02/15/23 16:55 Total Bilirubin 0.2 mg/dL (0.15-1.2) 02/15/23 16:55 AST 22 U/L (0-32) 02/15/23 16:55 ALT 23 U/L (0-33) 02/15/23 16:55 Alkaline Phosphatase 86 U/L (35-105) 02/15/23 16:55 Total Protein 7.7 g/dL (6.6-8.7) 02/15/23 16:55 Albumin 4.8 g/dL (3.5-5.2) 02/15/23 16:55 Globulin 2.9 g/dL (1.3-4.6) 02/15/23 16:55 HCG, Qual Negative (Negative) 02/15/23 16:55 Discharge Plan Discharge Patient Disposition: Home Clinical Impression: Vaginal bleeding, Anticoagulant long-term use Condition: Stable Prescriptions: No Action Vivitrol 380 mg suspension,extended rel recon 380 mg IM .[id number] Qty: 1 6RF Rx Instructions: Injection every 30 days acetylcysteine 600 mg capsule 600 mg PO BID Qty: 180 2RF propranolol 20 mg tablet 20 mg PO BID 90 Days Qty: 180 3RF omeprazole 20 mg capsule,delayed release(DR/EC) 20 mg PO BID Qty: 60 5RF hydroxyzine HCl 25 mg tablet 25 mg PO TID PRN (Reason: anxiety) Qty: 270 1RF levothyroxine 50 mcg capsule 50 mcg PO DAILY@0430 Qty: 30 11RF metformin 500 mg tablet extended release 24 hr 1,000 mg PO BID Qty: 240 0RF Eliquis 5 mg tablet 5 mg PO BID Qty: 60 11RF acetaminophen [Tylenol] 325 mg Tablet 325 mg PO QID PRN (Reason: Pain) magnesium 200 mg Tablet 200 mg PO DAILY melatonin 10 mg Tablet 5 - 10 mg PO BEDTIME PRN (Reason: Sleep) Lamictal 200 mg tablet 200 mg PO QAM Lamictal 25 mg tablet 25 mg PO QAM Rx Instructions: Take one tablet every morning with 200 mg tab, total dose 225 mg Geodon 60 mg capsule 60 mg PO QPM Rx Instructions: Take one capsule at 5 pm with 500 calories Discharge Orders: Discharge ED (Routine); Ordered 02/15/23 Ordered By: Anna Garnett Referrals: Jose Garcia MD [Primary Care Provider] - Discharge Diet: Usual diet Discharge Activity: Resume usual activity Patient Instructions: Opioid Safety, Pain Management Activity Restrictions/Additional Instructions: Your lab results do not show any significant anemia. At this time, I recommend continuing to monitor symptoms. Should the bleeding worsen or you have symptoms of dizziness or feeling lightheaded you should return immediately to the emergency department. Follow-up with your primary care provider tomorrow. Return to the emergency department as needed. Coding Level of Care Code ED [employer] for [employer] Documented by User: Nikolas Agee DO 02/26/23 07:15 HPI - Female Genitourinary General: Chief complaint: Vaginal Bleeding Stated complaint: blood thinner trouble Time Seen by Provider: 02/15/23 16:23 PFSH ED PFSH: Medical History Alcohol use disorder, severe, in early remission, dependence Last use 03/12/22 Bipolar 1 disorder, mixed, moderate Borderline personality disorder Hypothyroidism Morbid obesity Post-traumatic stress disorder, chronic Psychiatric care Self-injurious behavior last self harm on 10/30/22 Social History Smoking and tobacco status: never smoked Quit status (tobacco): has tried quititng Second hand smoke exposure: No Smoking risk assessment/counseling performed?: No Alcohol intake: former Year of sobriety/quit date alcohol: 03/12 Desire information about alcohol rehabilitation?: No Counseling given: No Substance/Drug Use: never Desire information about substance/drug rehabilitation?: No Counseling given: No Course Vital Signs: Vital signs: Vital Signs Temperature 98.0 F 02/15/23 16:00 Pulse Rate 81 02/15/23 18:52 Respiratory Rate 16 02/15/23 18:52 Blood Pressure 118/58 02/15/23 18:52 Pulse Oximetry 98 02/15/23 18:52 Oxygen Delivery Me thod Room Air 02/15/23 16:00 MDM - Female Medical Decision Making Patient is in for heavy vaginal bleeding. She is on Eliquis for recurrent DVT. Hemoglobin?13 Pelvic exam normal with the exception of mild to moderate bleeding noted at the cervical os. Patient is in no acute distress. Vital signs are stable. We will discharge patient home to follow-up with Tomorrow. Monitor closely and return to the ER for any new or worsening symptoms. Patient is very agreeable with plan of care and ready for discharge. Chart reviewed and patient discussed with midlevel. Agree with assessment and plan. Lab Data 02/15/23 16:55 02/15/23 16:55 Laboratory Results WBC 8.4 10^3/uL (4.0-10.0) 02/15/23 16:55 RBC 4.57 10^6/uL (4.1-5.3) 02/15/23 16:55 Hgb 13.0 g/dL (11.5-15.3) 02/15/23 16:55 Hct 40.1 % (37.0-47.0) 02/15/23 16:55 MCV 87.7 fl (81-99) 02/15/23 16:55 MCH 28.4 pg (28.0-34.0) 02/15/23 16:55 MCHC 32.4 g/dL (30.0-36.0) 02/15/23 16:55 RDW 12.2 % (12.1-15.1) 02/15/23 16:55 Plt Count 266 10^3/cmm (130-400) 02/15/23 16:55 MPV 10.4 fL (7.4-10.4) 02/15/23 16:55 Neut % (Auto) 56.6 % 02/15/23 16:55 Lymph % (Auto) 32.9 % 02/15/23 16:55 [place] % (Auto) 7.7 % 02/15/23 16:55 Eos % (Auto) 1.9 % 02/15/23 16:55 Baso % (Auto) 0.8 % 02/15/23 16:55 Neut # (Auto) 4.77 10^3/uL (1.8-7.7) 02/15/23 16:55 Lymph # (Auto) 2.8 10^3/uL (0.8-4.8) 02/15/23 16:55 [place] # (Auto) 0.7 10^3/uL (0.2-0.9) 02/15/23 16:55 Eos # (Auto) 0.2 10^3/uL (0.0-0.8) 02/15/23 16:55 Baso # (Auto) 0.1 10^3/uL (0.0-0.1) 02/15/23 16:55 Nucleated RBC % (auto) 0 % 02/15/23 16:55 Nucleated RBCs # 0.0 /100WBC 02/15/23 16:55 PT 12.90 SECONDS (12.1-14.9) 02/15/23 16:55 INR 0.95 (0.8-1.2) 02/15/23 16:55 APTT 27.3 SECONDS (23.9-36.7) 02/15/23 16:55 Sodium 141 mmol/L (136-145) 02/15/23 16:55 Potassium 4.1 mmol/L (3.5-5.1) 02/15/23 16:55 Chloride 104 mmol/L (98-107) 02/15/23 16:55 Carbon Dioxide 24 mmol/L (22-29) 02/15/23 16:55 Anion Gap 17.1 (5-19) 02/15/23 16:55 BUN 9 mg/dL (6-20) 02/15/23 16:55 Creatinine 0.8 mg/dL (0.5-0.9) 02/15/23 16:55 GFR Calculation 88.9 mL/min (90-130) L 02/15/23 16:55 Glucose 87 mg/dL (65-115) 02/15/23 16:55 Calculated Osmolality 290 mOsm/kg (285-295) 02/15/23 16:55 Calcium 8.9 mg/dL (8.5-10.5) 02/15/23 16:55 Total Bilirubin 0.2 mg/dL (0.15-1.2) 02/15/23 16:55 AST 22 U/L (0-32) 02/15/23 16:55 ALT 23 U/L (0-33) 02/15/23 16:55 Alkaline Phosphatase 86 U/L (35-105) 02/15/23 16:55 Total Protein 7.7 g/dL (6.6-8.7) 02/15/23 16:55 Albumin 4.8 g/dL (3.5-5.2) 02/15/23 16:55 Globulin 2.9 g/dL (1.3-4.6) 02/15/23 16:55 HCG, Qual Negative (Negative) 02/15/23 16:55 Discharge Plan Discharge Patient Disposition: Home Clinical Impression: Vaginal bleeding, Anticoagulant long-term use Condition: Stable Prescriptions: No Action Vivitrol 380 mg suspension,extended rel recon 380 mg IM .[id number] Qty: 1 6RF Rx Instructions: Injection every 30 days acetylcysteine 600 mg capsule 600 mg PO BID Qty: 180 2RF propranolol 20 mg tablet 20 mg PO BID 90 Days Qty: 180 3RF omeprazole 20 mg capsule,delayed release(DR/EC) 20 mg PO BID Qty: 60 5RF hydroxyzine HCl 25 mg tablet 25 mg PO TID PRN (Reason: anxiety) Qty: 270 1RF levothyroxine 50 mcg capsule 50 mcg PO DAILY@0430 Qty: 30 11RF metformin 500 mg tablet extended release 24 hr 1,000 mg PO BID Qty: 240 0RF Eliquis 5 mg tablet 5 mg PO BID Qty: 60 11RF acetaminophen [Tylenol] 325 mg Tablet 325 mg PO QID PRN (Reason: Pain) magnesium 200 mg Tablet 200 mg PO DAILY melatonin 10 mg Tablet 5 - 10 mg PO BEDTIME PRN (Reason: Sleep) Lamictal 200 mg tablet 200 mg PO QAM Lamictal 25 mg tablet 25 mg PO QAM Rx Instructions: Take one tablet every morning with 200 mg tab, total dose 225 mg Geodon 60 mg capsule 60 mg PO QPM Rx Instructions: Take one capsule at 5 pm with 500 calories Discharge Orders: Discharge ED (Routine); Ordered 02/15/23 Ordered By: Anna Garnett Referrals: Jose Garcia MD [Primary Care Provider] - Discharge Diet: Usual diet Discharge Activity: Resume usual activity Patient Instructions: Opioid Safety, Pain Management Activity Restrictions/Additional Instructions: Your lab results do not show any significant anemia. At this time, I recommend continuing to monitor symptoms. Should the bleeding worsen or you have symptoms of dizziness or feeling lightheaded you should return immediately to the emergency department. Follow-up with your primary care provider tomorrow. Return to the emergency department as needed. Coding Level of Care Code ED [employer] for Rusty Heredia
[2023-02-15 17:52] LABS: Basophils # 0.1 10^3/uL (0.0-0.1); Basophils % 0.8 %; Eosinophils # 0.2 10^3/uL (0.0-0.8); Eosinophils % 1.9 %; Hematocrit 40.1 % (37.0-47.0); Lymphocytes # 2.8 10^3/uL (0.8-4.8); Lymphocytes % 32.9 %; Mean Corpuscular HGB Conc 32.4 g/dL (30.0-36.0); Mean Corpuscular Hemoglobin 28.4 pg (28.0-34.0); Mean Corpuscular Volume 87.7 fl (81-99); Mean Platelet Volume 10.4 fL (7.4-10.4); Monocytes # 0.7 10^3/uL (0.2-0.9); Monocytes % 7.7 %; Neutrophils # 4.77 10^3/uL (1.8-7.7); Neutrophils % 56.6 %; Nucleated Red Blood Cells % 0 %; Platelet Count 266 10^3/cmm (130-400); Red Blood Count 4.57 10^6/uL (4.1-5.3); Red Cell Distribution Width 12.2 % (12.1-15.1); White Blood Count 8.4 10^3/uL (4.0-10.0)
[2023-02-15 17:54] LABS: INR 0.95 (0.8-1.2)
[2023-02-15 17:56] LABS: Partial Thromboplastin Time 27.3 SECONDS (23.9-36.7)
[2023-02-15 18:52] VITALS: BP 118/58; PULSE 81; RESP 16; O2SAT 98
== END 2023-02-15 18:55 | disposition home or self-care (01) ==
PROVIDERS: Physician Assistant; Emergency Provider Nurse Practitioner Family; PCP Family Medicine
DX: N93.9 Abnormal uterine and vaginal bleeding, unspecified (principal); Z79.01 Long term (current) use of anticoagulants; Z79.84 Long term (current) use of oral hypoglycemic drugs
CPT/HCPCS: 36415; 80053; 84703; 85025; 85610; 85730; 99284

== ENCOUNTER → 2023-04-16 15:44 | Outpatient (BNVA) | payer OTHER, SELFPAY ==
[2022-11-10 15:12] VITALS: BP 140/108; BMI 42.1
== END ==
PROVIDERS: PCP Family Medicine; Visit Provider Internal Medicine
DX: E03.9 Hypothyroidism, unspecified (principal)
CPT/HCPCS: 36415; 84439; 84443

== ENCOUNTER → 2023-05-17 13:18 | Outpatient (BNVA) | payer OTHER, SELFPAY ==
[2022-11-10 15:12] VITALS: BP 140/108; BMI 42.1
== END ==
PROVIDERS: PCP Family Medicine; Visit Provider Internal Medicine Cardiovascular Disease
DX: Z79.899 Other long term (current) drug therapy (principal)
CPT/HCPCS: 93005

== ENCOUNTER → 2023-08-08 08:48 | Outpatient (BNVA) | payer OTHER, SELFPAY ==
[2023-05-31 11:27] VITALS: BP 140/108; BMI 42.1
== END ==
PROVIDERS: PCP Family Medicine; Referring Provider Family Medicine; Visit Provider Specialist
DX: M25.561 Pain in right knee (principal); G89.29 Other chronic pain
CPT/HCPCS: 73560; 73565

== ENCOUNTER 2023-08-23 15:23 | Outpatient (RCR) | payer OTHER, SELFPAY ==
[2023-05-31 11:27] VITALS: BP 140/108; BMI 42.1
== END 2023-08-23 23:59 | disposition home or self-care (01) ==
LOC: SPT 15:23
PROVIDERS: PCP Family Medicine; Visit Provider Specialist
DX: M25.561 Pain in right knee (principal)
CPT/HCPCS: 97161

== ENCOUNTER 2023-08-24 06:00 | Outpatient (RCR) | payer OTHER, SELFPAY ==
[2023-05-31 11:27] VITALS: BP 140/108; BMI 42.1
== END 2023-09-23 23:59 | disposition home or self-care (01) ==
LOC: SPT 06:00
PROVIDERS: PCP Family Medicine; Visit Provider Specialist
DX: M25.561 Pain in right knee (principal)
CPT/HCPCS: 97110

== ENCOUNTER 2023-09-10 14:05 | Outpatient (CLI) | payer OTHER, SELFPAY ==
[2023-05-31 11:27] VITALS: BP 140/108; BMI 42.1
[2023-09-10 14:56] LABS: Free T4 Free Thyroxine 1.43 ng/dL (0.82-1.77); Testosterone Total 72.9 ng/dL (8.4-48.1); Thyroid Stimulating Hormone 0.69 uIU/mL (0.27-4.20)
[2023-09-11 07:09] LABS: Dehydroepiandrosterone Sulfate 920 mcg/dL (14-349)
== END 2023-09-10 14:06 | disposition home or self-care (01) ==
LOC: LAB 14:06
PROVIDERS: PCP Family Medicine; Visit Provider Internal Medicine
DX: E03.9 Hypothyroidism, unspecified (principal)
CPT/HCPCS: 36415; 82627; 84403; 84439; 84443

== ENCOUNTER → 2023-09-19 10:20 | Outpatient (BNVA) | payer OTHER, SELFPAY ==
[2023-05-31 11:27] VITALS: BP 140/108; BMI 42.1
== END ==
PROVIDERS: PCP Family Medicine; Visit Provider Internal Medicine
DX: E28.2 Polycystic ovarian syndrome (principal); E03.9 Hypothyroidism, unspecified; E66.01 Morbid (severe) obesity due to excess calories; R79.89 Other specified abnormal findings of blood chemistry
CPT/HCPCS: 36415; 82627

== ENCOUNTER 2023-09-21 09:32 | Outpatient (CLI) | payer OTHER, SELFPAY ==
[2023-05-31 11:27] VITALS: BP 140/108; BMI 42.1
[2023-09-21 10:11] LABS: Total Volume Urine 2900 ml
[2023-09-21 10:25] LABS: Urine Creatinine 70 mg/dL (28-217)
[2023-09-28 16:34] LABS: Free Cortisol Urine 45.8 mcg/24 h (4.0-50.0); Total Urine 2900 mL; Urine Creatinine 2.05 g/24 h (0.50-2.15)
== END 2023-09-21 09:33 | disposition home or self-care (01) ==
LOC: LAB 09:33
PROVIDERS: PCP Family Medicine; Visit Provider Internal Medicine
DX: R79.89 Other specified abnormal findings of blood chemistry (principal); E03.9 Hypothyroidism, unspecified
CPT/HCPCS: 82530; 82570

== ENCOUNTER 2023-09-24 06:00 | Outpatient (RCR) | payer OTHER, SELFPAY ==
[2023-05-31 11:27] VITALS: BP 140/108; BMI 42.1
== END 2023-09-27 23:59 | disposition home or self-care (01) ==
LOC: SPT 06:00
PROVIDERS: PCP Family Medicine; Visit Provider Specialist
DX: M25.561 Pain in right knee (principal)
CPT/HCPCS: 97110

== ENCOUNTER 2023-10-15 08:01 | Outpatient (CLI) | payer OTHER, SELFPAY ==
[2023-05-31 11:27] VITALS: BP 140/108; BMI 42.1
--- NOTE | 2023-10-15 08:30 | CT_ITS ---
WS: [id number] CT ABDOMEN WITH AND WITHOUT CONTRAST HISTORY: E03.9 - Hypothyroidism, unspecified Multi phase 5 mm axial imaging performed to the abdomen. Oral contrast has not been provided. Coronal and sagittal reformats are submitted. All CT scans at [facility] use at least one of these d ose optimization techniques: automated exposure control; mA and/or kV adjustment per patient size (in cludes targeted exams where dose is matched to clinical indication); or iterative reconstruction. IV CONTRAST: Omnipaque 350; 100 mL IV. Oral contrast: No DLP: 1479.90 mGy.cm COMPARISON: None available. Lower thorax: Lung bases are clear. Heart is normal size. Small hiatal hernia. Liver/biliary system: Mildly enlarged liver with mild hepatic steatosis. No mass or bile duct dilatat ion. Normal portal vein. Gallbladder: Normal. No gallstones or wall thickening. No pericholecystic fluid. Pancreas: Normal size pancreas and pancreatic duct. No adjacent inflammation. Spleen: Normal size spleen. No mass or infarct. Adrenal glands: Normal. Right kidney: Normal. Left kidney: Normal. Aorta: Normal. Lymphadenopathy: None. Free fluid: None. GI tract: Mild constipation within the visualized colon. The appendix is negative. Abdominal wall: Fat containing umbilical hernia. Visualized osseous structures: Unremarkable. IMPRESSION: 1. Normal adrenal glands. No mass. 2. No adenopathy or ascites. 3. Mild hepatic steatosis and hepatomegaly. 4. Mild constipation.
[2023-10-15] MEDS: iohexol 350 mg/mL 500 mL Btl (per mL) IV (08:55)
== END 2023-10-15 08:02 | disposition home or self-care (01) ==
PROVIDERS: PCP Family Medicine; Visit Provider Internal Medicine
DX: E03.9 Hypothyroidism, unspecified (principal); R79.89 Other specified abnormal findings of blood chemistry; K76.0 Fatty (change of) liver, not elsewhere classified; R16.0 Hepatomegaly, not elsewhere classified; K59.00 Constipation, unspecified
CPT/HCPCS: 74170; Q9967

== ENCOUNTER → 2023-10-18 14:12 | Outpatient (BNVA) | payer OTHER, SELFPAY ==
[2023-05-31 11:27] VITALS: BP 140/108; BMI 42.1
== END ==
PROVIDERS: PCP Family Medicine; Visit Provider Nurse Practitioner Psychiatric/Mental Health
DX: Z79.899 Other long term (current) drug therapy (principal)
CPT/HCPCS: 80053; 80061; 83036

== ENCOUNTER → 2023-10-19 15:39 | Outpatient (BNVA) | payer OTHER, SELFPAY ==
[2023-05-31 11:27] VITALS: BP 140/108; BMI 42.1
== END ==
PROVIDERS: PCP Family Medicine; Visit Provider Nurse Practitioner Psychiatric/Mental Health
DX: Z79.899 Other long term (current) drug therapy (principal)
CPT/HCPCS: 80306

== ENCOUNTER 2023-11-12 13:20 | Outpatient (CLI) | payer OTHER, SELFPAY ==
[2023-10-26 10:44] VITALS: BP 150/82; BMI 39.0
[2023-11-12 14:45] LABS: Estmated Average Glucose 103; Free T4 Free Thyroxine 1.45 ng/dL (0.82-1.77); Hemoglobin A1C 5.2 % (4.0-6.0); Thyroid Stimulating Hormone 1.42 uIU/mL (0.27-4.20)
[2023-11-13 09:51] LABS: Dehydroepiandrosterone Sulfate 912 mcg/dL (14-349)
== END 2023-11-12 13:21 | disposition home or self-care (01) ==
LOC: LAB 13:23
PROVIDERS: PCP Family Medicine; Visit Provider Internal Medicine
DX: E03.9 Hypothyroidism, unspecified (principal); I10 Essential (primary) hypertension; E28.2 Polycystic ovarian syndrome
CPT/HCPCS: 36415; 82627; 83036; 84439; 84443

== ENCOUNTER 2023-12-06 08:03 | Outpatient (CLI) | payer OTHER, SELFPAY ==
[2023-10-26 10:44] VITALS: BP 150/82; BMI 39.0
== END 2023-12-06 08:04 | disposition home or self-care (01) ==
LOC: LAB 08:06
PROVIDERS: PCP Family Medicine; Visit Provider Internal Medicine
DX: N92.0 Excessive and frequent menstruation with regular cycle (principal); E28.2 Polycystic ovarian syndrome; R79.89 Other specified abnormal findings of blood chemistry
CPT/HCPCS: 36415; 83498

== ENCOUNTER 2023-12-07 07:36 | Outpatient (CLI) | payer OTHER, SELFPAY ==
[2023-10-26 10:44] VITALS: BP 150/82; BMI 39.0
[2023-12-07 08:55] LABS: Cortisol Random 5.17 ug/dL (2.47-19.5)
== END 2023-12-07 07:37 | disposition home or self-care (01) ==
LOC: LAB 07:36
PROVIDERS: PCP Family Medicine; Visit Provider Internal Medicine
DX: R79.89 Other specified abnormal findings of blood chemistry (principal)
CPT/HCPCS: 82533

== ENCOUNTER 2024-01-06 07:43 | Outpatient (CLI) | payer OTHER, SELFPAY ==
[2023-10-26 10:44] VITALS: BP 150/82; BMI 39.0
[2024-01-06 08:36] LABS: Free T4 Free Thyroxine 1.49 ng/dL (0.82-1.77); Thyroid Stimulating Hormone 1.34 uIU/mL (0.27-4.20)
[2024-01-08 00:39] LABS: Dehydroepiandrosterone Sulfate 886 mcg/dL (14-349)
== END 2024-01-06 07:44 | disposition home or self-care (01) ==
PROVIDERS: PCP Family Medicine; Visit Provider Internal Medicine
DX: E28.2 Polycystic ovarian syndrome (principal); E03.9 Hypothyroidism, unspecified; R79.89 Other specified abnormal findings of blood chemistry
CPT/HCPCS: 82627; 84439; 84443

== ENCOUNTER → 2024-01-21 09:53 | Outpatient (BNVA) | payer SELFPAY ==
[2023-10-26 10:44] VITALS: BP 150/82; BMI 39.0
== END ==
PROVIDERS: PCP Family Medicine; Visit Provider Internal Medicine
DX: R79.89 Other specified abnormal findings of blood chemistry (principal); E03.9 Hypothyroidism, unspecified
CPT/HCPCS: 36415; 82024

== ENCOUNTER 2024-01-29 07:16 | Outpatient (CLI) | payer OTHER, SELFPAY ==
[2023-10-26 10:44] VITALS: BP 150/82; BMI 39.0
[2024-02-02 20:04] LABS: Adrenocorticotropic Hormone 13 pg/mL (6-50)
== END 2024-01-29 07:17 | disposition home or self-care (01) ==
PROVIDERS: PCP Family Medicine; Visit Provider Internal Medicine
DX: R79.89 Other specified abnormal findings of blood chemistry (principal); E03.9 Hypothyroidism, unspecified
CPT/HCPCS: 36415; 82024

== ENCOUNTER 2024-01-30 11:42 | Outpatient (CLI) | payer OTHER, SELFPAY ==
[2023-10-26 10:44] VITALS: BP 150/82; BMI 39.0
[2024-01-30 14:09] LABS: Urine Creatinine 64 mg/dL (28-217)
[2024-01-30 14:24] LABS: Total Volume Urine 2500 ml
== END 2024-01-30 11:43 | disposition home or self-care (01) ==
PROVIDERS: PCP Family Medicine; Visit Provider Internal Medicine
DX: R79.89 Other specified abnormal findings of blood chemistry (principal); E03.9 Hypothyroidism, unspecified
CPT/HCPCS: 82570

== ENCOUNTER 2024-02-13 11:31 | Outpatient (CLI) | payer OTHER, SELFPAY ==
[2023-10-26 10:44] VITALS: BP 150/82; BMI 39.0
[2024-02-13 12:34] LABS: Urine Creatinine 63 mg/dL (28-217)
[2024-02-13 12:43] LABS: Total Volume Urine 2300 ml
[2024-02-19 19:03] LABS: Free Cortisol Urine 35.6 mcg/24 h (4.0-50.0); Total Urine 2300 mL; Urine Creatinine 1.41 g/24 h (0.50-2.15)
== END 2024-02-13 11:32 | disposition home or self-care (01) ==
LOC: LAB 11:32
PROVIDERS: PCP Family Medicine; Visit Provider Internal Medicine
DX: E66.01 Morbid (severe) obesity due to excess calories (principal); R79.89 Other specified abnormal findings of blood chemistry
CPT/HCPCS: 82530; 82570

== ENCOUNTER 2024-03-10 10:55 | Emergency (ER) | payer OTHER, SELFPAY ==
[2023-10-26 10:44] VITALS: BP 150/82; BMI 39.0
[2024-03-10 11:38] VITALS: BP 129/87; PULSE 86; RESP 16; TEMP 36.7; O2SAT 100; BMI 33.5
--- NOTE | 2024-03-10 12:17 | XRR_ITS ---
PROCEDURE INFORMATION: Exam: XR Chest Exam date and time: 03/10/2024 12:21 PM Age: 23 years old Clinical indication: Cough and dyspnea; Patient HX: Abd pain; Additional info: Dyspnea/cough TECHNIQUE: Imaging protocol: Radiologic exam of the chest. Views: 1 view. COMPARISON: CT abdomen wo/w con [id number] 10/15/2023 8:43 AM FINDINGS: Lungs: Unremarkable. No consolidation. Pleural spaces: Unremarkable. No pleural effusion. No pneumothorax. Heart/Mediastinum: Unremarkable. No cardiomegaly. Bones/joints: Unremarkable. XR/XR chest 1V portable [id number] IMPRESSION: No acute findings.
--- NOTE | 2024-03-10 12:19 | ED_ITS ---
HPI - Abdominal Pain 2 General: Chief Complaint: Abdominal Pain Stated Complaint: abd pain, vomitting Time Seen by Provider: 03/10/24 12:16 Source: patient Mode of arrival: ambulatory History of Present Illness: 23-year-old female MD elicited complaint: abdominal pain Associated Symptoms: Denies chills, dysuria and fever(s) Related Data: Date of Last Menstrual Period: 03/09/24 Review of Systems 2 Const: Denies: fever(s) or chills Card: Denies: chest pain Resp: Denies: dyspnea GI: Denies: abdominal pain : Denies: dysuria, urinary frequency or urinary urgency Musc: Denies: neck pain or back pain Skin/Breast: Denies: rash PFSH ED 2 PFSH: Medical History Alcohol use disorder, severe, in sustained remission, dependence last use 03/12/22 Nicotine dependence due to vaping tobacco product Self-injurious behavior last time cut September 30, 2022, prior non suicidal self harm via cigarette burn was on 05/31/23. Morbid obesity Hypothyroidism Psychiatric care Borderline personality disorder Post-traumatic stress disorder, chronic Bipolar 1 disorder, mixed, moderate Social History Smoking and tobacco/nicotine status: current every day tobacco/nicotine user e- cigarettes E-Cigarette Details: with nicotine Quit status (tobacco/nicotine): has tried quititng Second hand smoke exposure: No Alcohol intake: former Year of sobriety/quit date alcohol: 03/12 Substance/Drug Use: never Female Reproductive History: Date of last menstrual period: 03/09/24 Physical Exam 2 Const: COMMON NORMALS: no acute distress GENERAL APPEARANCE: cooperative and comfortable ORIENTATION/CONSCIOUSNESS: Yes awake, Yes oriented to person, Yes oriented to place and Yes oriented to time HENMT: COMMON NORMALS: normocephalic, atraumatic and hearing grossly normal bilaterally HEAD & SCALP: normocephalic and atraumatic Resp: COMMON NORMALS: normal respiratory effort, No retractions, No use of accessory muscles and clear to auscultation bilaterally AUSCULTATION: clear to auscultation bilaterally Cardio: COMMON NORMALS: regular rate, regular rhythm and No murmurs present (Cardio) RATE: regular rate RHYTHM: regular rhythm GI: COMMON NORMALS: Soft to palpation and No hepatosplenomegaly present A USCULTATION: Yes normoactive bowel sounds PALPATION: Yes Soft to palpation, No Tenderness to palpation present (GI), No Guarding due to palpation present (GI) and Yes No hepatosplenomegaly present Extremity: COMMON NORMALS: normal to inspection, capillary refill normal, no clubbing, cyanosis or edema, no calf tenderness and no pedal edema Neuro: SENSORIUM/ORIENTATION: Yes oriented to person, Yes oriented to place and Yes oriented to time Skin: COMMON NORMALS: no rashes or lesions noted GENERAL SKIN EXAM: no rashes or lesions noted Course 2 Vital Signs: Vital signs: Vital Signs Temperature 98.0 F 03/10/24 11:38 Pulse Rate 95 03/10/24 15:30 Respiratory Rate 16 03/10/24 11:38 Blood Pressure 132/82 03/10/24 15:30 Pulse Oximetry 95 03/10/24 15:30 Oxygen Delivery Me thod Room Air 03/10/24 15:30 MDM - Abdominal Pain Medical Decision Making Patient had significant hematuria with no signs of cystitis CT shows 3 mm nephrolithiasis patient had sudden improvement of her pain I suspect she actually passed a stone. Will have her strain her urine for now we will discharge her home with promethazine and Flomax. She is on Vivitrol does not want any narcotics fortunately her pain is much improved. Also set her up for a follow-up with urology. Medical Records I reviewed the patient's medical records. Lab Data I reviewed the patient's lab results. 03/10/24 12:31 03/10/24 12:31 Labs/Radiology: Radiology Impressions Chest X-Ray 03/10/24 12:17 IMPRESSION: No acute findings. Abdomen/Pelvis CT 03/10/24 13:13 IMPRESSION: 1. Mild RIGHT hydroureteronephrosis secondary to a 3 mm calcification at the UV junction. 2. Normal appendix. 3. No additional calcifications. 4. No GI tract obstruction. Laboratory Results WBC 10.86 10^3/uL (3.29-11.43) 03/10/24 12:31 RBC 4.27 10^6/uL (3.85-5.65) 03/10/24 12:31 Hgb 12.40 g/dL (11.27-16.99) 03/10/24 12:31 Hct 37.2 % (36-47) 03/10/24 12:31 MCV 87.1 fl (85-98) 03/10/24 12:31 MCH 29.0 pg (27-33) 03/10/24 12:31 MCHC 33.3 g/dL (30-55) 03/10/24 12:31 RDW 12.5 % (12.1-15.1) 03/10/24 12:31 Plt Count 279 10^3/cmm (157-399) 03/10/24 12:31 MPV 10.7 fL (7.4-10.4) H 03/10/24 12:31 Neut % (Auto) 80.4 % 03/10/24 12:31 Lymph % (Auto) 14.3 % 03/10/24 12:31 Ness % (Auto) 3.9 % 03/10/24 12:31 Eos % (Auto) 0.5 % 03/10/24 12:31 Baso % (Auto) 0.6 % 03/10/24 12:31 Neut # (Auto) 8.74 10^3/uL (1.8-7.7) H 03/10/24 12:31 Lymph # (Auto) 1.6 10^3/uL (0.8-4.8) 03/10/24 12:31 Ness # (Auto) 0.4 10^3/uL (0.2-0.9) 03/10/24 12:31 Eos # (Auto) 0.1 10^3/uL (0.0-0.8) 03/10/24 12:31 Baso # (Auto) 0.1 10^3/uL (0.0-0.1) 03/10/24 12:31 Nucleated RBC % (auto) 0 % 03/10/24 12:31 Nucleated RBCs # 0.0 /100WBC 03/10/24 12:31 Sodium 138 mmol/L (136-145) 03/10/24 12:31 Potassium 4.3 mmol/L (3.5-5.1) 03/10/24 12:31 Chloride 105 mmol/L (98-107) 03/10/24 12:31 Carbon Dioxide 20 mmol/L (22-29) L 03/10/24 12:31 Anion Gap 17.3 (5-19) 03/10/24 12:31 BUN 16 mg/dL (6-20) 03/10/24 12:31 Creatinine 1.0 mg/dL (0.5-0.9) H 03/10/24 12:31 GFR Calculation 68.1 mL/min (90-130) L 03/10/24 12:31 Glucose 109 mg/dL (65-115) 03/10/24 12:31 Calculated Osmolality 288 mOsm/kg (285-295) 03/10/24 12:31 Calcium 9.6 mg/dL (8.5-10.5) 03/10/24 12:31 Total Bilirubin 0.3 mg/dL (0.15-1.2) 03/10/24 12:31 AST 23 U/L (0-32) 03/10/24 12:31 ALT 14 U/L (0-33) 03/10/24 12:31 Alkaline Phosphatase 82 U/L (35-105) 03/10/24 12:31 Total Protein 7.9 g/dL (6.6-8.7) 03/10/24 12:31 Albumin 4.6 g/dL (3.5-5.2) 03/10/24 12:31 Globulin 3.3 g/dL (1.3-4.6) 03/10/24 12:31 Lipase 34 U/L (13-60) 03/10/24 12:31 HCG, Qual Negative (Negative) 03/10/24 12:31 Urine Color Yellow (Yellow) 03/10/24 14:58 Urine Appearance Clear (CLEAR) 03/10/24 14:58 Urine pH 5 (5-7) 03/10/24 14:58 Ur Specific [place] 1.000 (1.005-1.030) L 03/10/24 14:58 Urine Protein Trace (Negative) 03/10/24 14:58 Urine Glucose (UA) Norm (Normal) 03/10/24 14:58 Urine Ketones 2+ (Negative) H 03/10/24 14:58 Urine Blood 3+ (Negative) H 03/10/24 14:58 Urine Nitrate Negative (Negative) 03/10/24 14:58 Urine Bilirubin Neg (Negative) 03/10/24 14:58 Urine Urobilinogen Neg mg/dL (Negative) 03/10/24 14:58 Ur Leukocyte Esterase Negative (Negative) 03/10/24 14:58 Urine RBC 15-25 /hpf (0-2) H 03/10/24 14:58 Urine WBC 0-4 /hpf (0-5) H 03/10/24 14:58 Ur Squamous Epith Cells 0-4 /hpf (0-5) H 03/10/24 14:58 Amorphous Sediment Not Reportable 03/10/24 14:58 Urine Bacteria Trace /hpf (NONE) 03/10/24 14:58 Urine Mucus Trace /hpf 03/10/24 14:58 All radiology interpretation(s) finalized by discharge Discharge Plan Discharge Patient Disposition: Home Clinical Impression: Ureterolithiasis Condition: Stable Prescriptions: New promethazine 25 mg tablet 25 mg PO Q6H PRN (Reason: nausea and vomiting) Qty: 20 0RF tamsulosin 0.4 mg capsule 0.4 mg PO DAILY Qty: 30 0RF No Action naltrexone 50 mg tablet 50 mg PO DAILY PRN (Reason: alcohol cravings) Qty: 90 1RF biotin 10,000 mcg capsule 10,000 mcg PO DAILY hydroxyzine HCl 25 mg tablet 25 mg PO TID PRN (Reason: anxiety) Qty: 270 1RF aspirin [Adult Low Dose Aspirin] 81 mg tablet,delayed release (DR/EC) 81 mg PO DAILY ondansetron 4 mg tablet,disintegrating 4 mg PO Q6H PRN (Reason: nausea and vomiting) Qty: 20 11RF Vivitrol 380 mg suspension,extended rel recon 380 mg IM .B06bmax Qty: 1 12RF Rx Instructions: Injection every 30 days ziprasidone HCl [Geodon] 40 mg capsule 40 mg PO BID Qty: 180 2RF lamotrigine [Lamictal] 200 mg tablet 200 mg PO BID Qty: 180 2RF propranolol 20 mg tablet 20 mg PO BID Qty: 180 2RF acamprosate 333 mg tablet,delayed release (DR/EC) 666 mg PO TID Qty: 180 3RF Ozempic 1 mg/dose (4 mg/3 mL) pen injector 1 mg SUBCUT Q7D Qty: 3 1RF acetylcysteine 600 mg capsule 600 mg PO BID Qty: 180 2RF Mounjaro 7.5 mg/0.5 mL pen injector 7.5 mg SUBCUT Q7D Qty: 6 1RF Rx Instructions: ON SUNDAY acetaminophen [Tylenol] 325 mg Tablet 325 mg PO QID PRN (Reason: Pain) magnesium 200 mg Tablet 200 mg PO DAILY melatonin 10 mg Tablet 5 - 10 mg PO BEDTIME PRN (Reason: Sleep) levothyroxine 50 mcg tablet 50 mcg PO DAILY omeprazole 20 mg capsule,delayed release(DR/EC) 20 mg PO BID metformin 500 mg tablet extended release 24 hr 1,000 mg PO BID Discharge Orders: Discharge ED (Routine); Ordered 03/10/24 Ordered By: Nikolas Agee Referrals: Jose Garcia MD [Primary Care Provider] - Discharge Diet: Usual diet Discharge Activity: Resume usual activity Patient Instructions: Kidney Stones (ED), Opioid Safety, Pain Management Activity Restrictions/Additional Instructions: Thank you for choosing [facility] for your healthcare needs today. It is very important that you follow up as instructed or that you return to the Emergency Department should you have concerns or if your condition changes or worsens in any way. You were seen today for persistent nausea and vomiting abdominal pain scan shows that you have a kidney stone. It is approximately 3 mm it is at the verge of falling into the bladder. Will discharge you home with pain medications as well as Flomax which will help the stone to pass little quicker and promethazine for nausea and vomiting. Case management recommendations for you to follow-up with urology. 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
[2024-03-10] MEDS: sodium chloride 0.9% 1,000 ML 999 ML IV ×3 (12:40→15:15)
[2024-03-10] MEDS: ondansetron 2 mg/ML SDV 2 mL 4 MG IVP (12:41)
[2024-03-10] MEDS: ketorolac 30 mg/mL INJ IVP (12:42)
[2024-03-10 12:49] VITALS: BP 131/79; PULSE 97; O2SAT 100
[2024-03-10 12:49] LABS: Basophils # 0.1 10^3/uL (0.0-0.1); Basophils % 0.6 %; Eosinophils # 0.1 10^3/uL (0.0-0.8); Eosinophils % 0.5 %; Hematocrit 37.2 % (36-47); Lymphocytes # 1.6 10^3/uL (0.8-4.8); Lymphocytes % 14.3 %; Mean Corpuscular HGB Conc 33.3 g/dL (30-55); Mean Corpuscular Volume 87.1 fl (85-98); Mean Platelet Volume 10.7 fL (7.4-10.4); Monocytes # 0.4 10^3/uL (0.2-0.9); Monocytes % 3.9 %; Neutrophils # 8.74 10^3/uL (1.8-7.7); Neutrophils % 80.4 %; Nucleated Red Blood Cells % 0 %; Platelet Count 279 10^3/cmm (157-399); Red Blood Count 4.27 10^6/uL (3.85-5.65); Red Cell Distribution Width 12.5 % (12.1-15.1); White Blood Count 10.86 10^3/uL (3.29-11.43)
[2024-03-10 13:03] LABS: HCG, Serum Qual Negative (Negative)
[2024-03-10 13:09] LABS: Alanine Aminotransferase 14 U/L (0-33); Albumin Level 4.6 g/dL (3.5-5.2); Alkaline Phosphatase 82 U/L (35-105); Aspartate Amino Transferase 23 U/L (0-32); Blood Urea Nitrogen 16 mg/dL (6-20); Calcium 9.6 mg/dL (8.5-10.5); Carbon Dioxide 20 mmol/L (22-29); Chloride 105 mmol/L (98-107); Creatinine Clr Calc Pharmacy 93.3967; Globulin 3.3 g/dL (1.3-4.6); Glomerular Filtration Rate 68.1 mL/min (90-130); Glucose 109 mg/dL (65-115); Lipase 34 U/L (13-60); Osmolality Calculated 288 mOsm/kg (285-295); Sodium 138 mmol/L (136-145); Total Bilirubin 0.3 mg/dL (0.15-1.2); Total Protein 7.9 g/dL (6.6-8.7)
[2024-03-10 13:10] LABS: Anion Gap 17.3 (5-19); Potassium 4.3 mmol/L (3.5-5.1)
--- NOTE | 2024-03-10 13:13 | CT_ITS ---
WS: [id number] CT ABDOMEN AND PELVIS WITH CONTRAST HISTORY: abd pain TECHNIQUE: Imaging performed of the abdomen and pelvis with IV contrast. Single phase imaging of the abdomen. Coronal and sagittal reformats are submitted. All CT scans at [facility] use at [address] one of these dose optimization techniques: automated exposure control; mA and/or kV adjustment per patient size (includes targeted exams where dose is matched to clinical indication); or iterative re construction. IV CONTRAST: Omnipaque 350; 100 mL IV. Oral contrast: No DLP: 830.01 mGy.cm COMPARISON: CT abdomen 10/15/2023 Lower thorax: Lung bases are clear. Heart is normal size. No hiatal hernia. Liver/biliary system: Normal top size liver. Focal fatty sparing along the falciform ligament. Normal portal vein. Gallbladder: Normal. No gallstones or wall thickening. No pericholecystic fluid. Pancreas: Normal size pancreas and pancreatic duct. No adjacent inflammation. Spleen: Normal size spleen. No mass or infarct. Adrenal glands: Normal. Right kidney: Very mild dilatation of the RIGHT renal pelvis and RIGHT ureter. There is a 3 mm calcif ication at the UV junction. No additional renal calcifications. Left kidney: Normal. Aorta: Normal. Lymphadenopathy: None. Free fluid: None. GI tract: Small medicinal tablets in the stomach. No GI tract obstruction. Normal appendix. No coliti s. Abdominal wall: Unremarkable abdominal wall. No hernia. Pelvis: No free fluid or adenopathy within the pelvis. Small soft tissue masses bilaterally in the pe lvic subcu soft tissues. These may be small injection site granulomas. Bones: Unremarkable. CT/CT abdomen pelvis w con* [id number] IMPRESSION: 1. Mild RIGHT hydroureteronephrosis secondary to a 3 mm calcification at the U V junction. 2. Normal appendix. 3. No additional calcifications. 4. No GI tract obstruction.
[2024-03-10] MEDS: iohexol 350 mg/mL 500 mL Btl (per mL) IV (13:42)
[2024-03-10 15:30] VITALS: BP 132/82; PULSE 95; O2SAT 95
[2024-03-10 15:58] LABS: Urine Appearance Clear (CLEAR); Urine Color Yellow (Yellow); pH Urine 5 (5-7)
[2024-03-10 15:59] LABS: Add Urine Microscopic? YES; Bilirubin Urine Neg (Negative); Blood Urine 3+ (Negative); Glucose Urine UA Norm (Normal); Ketones Urine 2+ (Negative); Leukocyte Esterase Urine Negative (Negative); Nitrate Urine Negative (Negative); Protein Urine Trace (Negative); Urobilinogen Urine Neg (Negative)
[2024-03-10 16:00] LABS: Bacteria Urine TRACE /hpf; Mucus Urine TRACE /hpf; RBC Urine 15-25 /hpf (0-2); Squamous Epithelial Cell Urine 0-4 /hpf (0-5); WBC Urine 0-4 /hpf (0-5)
[2024-03-10 16:01] LABS: Add Urine Culture? Yes
[2024-03-10 16:23] VITALS: BP 131/87; PULSE 91; RESP 16; O2SAT 100
== END 2024-03-10 16:27 | disposition home or self-care (01) ==
PROVIDERS: Emergency Provider Family Medicine; PCP Family Medicine
DX: N13.2 Hydronephrosis with renal and ureteral calculous obstruction (principal); Z79.82 Long term (current) use of aspirin; Z79.84 Long term (current) use of oral hypoglycemic drugs; Z79.85 Long-term (current) use of injectable non-insulin antidiabetic drugs; F17.290 Nicotine dependence, other tobacco product, uncomplicated
CPT/HCPCS: 36415; 71045; 74177; 80053; 81001; 83690; 84703; 85025; 87086; 96361; 96374; 96375; 99285; J1885; J2405; J7030; Q9967

== ENCOUNTER → 2024-06-19 11:04 | Outpatient (BNVA) | payer OTHER, SELFPAY ==
[2024-05-28 16:23] VITALS: BP 150/82; BMI 39.0
== END ==
PROVIDERS: PCP Family Medicine; Visit Provider Registered Nurse Neonatal Intensive Care
DX: R30.0 Dysuria (principal)
CPT/HCPCS: 81000

== ENCOUNTER → 2024-06-26 10:42 | Outpatient (BNVA) | payer OTHER, SELFPAY ==
[2024-05-28 16:23] VITALS: BP 150/82; BMI 39.0
== END ==
PROVIDERS: PCP Family Medicine; Visit Provider Nurse Practitioner
DX: R39.9 Unspecified symptoms and signs involving the genitourinary system (principal)
CPT/HCPCS: 81000; 87086

== ENCOUNTER → 2024-07-03 16:46 | Outpatient (BNVA) | payer OTHER, SELFPAY ==
[2024-05-28 16:23] VITALS: BP 150/82; BMI 39.0
== END ==
PROVIDERS: PCP Family Medicine; Visit Provider Family Medicine
DX: R39.9 Unspecified symptoms and signs involving the genitourinary system (principal)
CPT/HCPCS: 81000

== ENCOUNTER 2024-08-11 12:31 | Outpatient (CLI) | payer OTHER, SELFPAY ==
[2024-05-28 16:23] VITALS: BP 150/82; BMI 39.0
[2024-08-11 13:27] LABS: Free T4 Free Thyroxine 1.42 ng/dL (0.82-1.77); Testosterone Total 66.5 ng/dL (8.4-48.1); Thyroid Stimulating Hormone 0.48 uIU/mL (0.27-4.20)
[2024-08-11 13:47] LABS: Alanine Aminotransferase 16 U/L (0-33); Albumin Level 4.4 g/dL (3.5-5.2); Alkaline Phosphatase 81 U/L (35-105); Aspartate Amino Transferase 20 U/L (0-32); Blood Urea Nitrogen 10 mg/dL (6-20); Calcium 8.6 mg/dL (8.5-10.5); Carbon Dioxide 24 mmol/L (22-29); Chloride 101 mmol/L (98-107); Globulin 2.2 g/dL (1.3-4.6); Glomerular Filtration Rate 102.8 mL/min (90-130); Glucose 99 mg/dL (65-115); Osmolality Calculated 283 mOsm/kg (285-295); Sodium 137 mmol/L (136-145); Total Bilirubin 0.2 mg/dL (0.15-1.2); Total Protein 6.6 g/dL (6.6-8.7)
[2024-08-12 09:59] LABS: Dehydroepiandrosterone Sulfate 791 mcg/dL (14-349)
== END 2024-08-11 12:32 | disposition home or self-care (01) ==
PROVIDERS: PCP Family Medicine; Visit Provider Internal Medicine
DX: E88.810 Metabolic syndrome (principal); E28.2 Polycystic ovarian syndrome; R79.89 Other specified abnormal findings of blood chemistry; E03.9 Hypothyroidism, unspecified
CPT/HCPCS: 36415; 80053; 82627; 84403; 84439; 84443

== ENCOUNTER → 2024-10-14 12:50 | Outpatient (BNVA) | payer OTHER, SELFPAY ==
[2024-05-28 16:23] VITALS: BP 150/82; BMI 39.0
== END ==
PROVIDERS: PCP Family Medicine; Visit Provider Internal Medicine Cardiovascular Disease
DX: Z79.899 Other long term (current) drug therapy (principal); R94.31 Abnormal electrocardiogram [ECG] [EKG]
CPT/HCPCS: 93005

== ENCOUNTER → 2024-10-23 11:29 | Outpatient (BNVA) | payer OTHER, SELFPAY ==
[2024-05-28 16:23] VITALS: BP 150/82; BMI 39.0
== END ==
PROVIDERS: PCP Family Medicine; Visit Provider Nurse Practitioner Women's Health
DX: Z12.4 Encounter for screening for malignant neoplasm of cervix (principal)
CPT/HCPCS: 88175

== ENCOUNTER 2024-11-10 06:17 | Outpatient (CLI) | payer OTHER, BC, MEDICAID, SELFPAY ==
[2024-05-28 16:23] VITALS: BP 150/82; BMI 39.0
--- NOTE | 2024-11-10 06:15 | USCV_ITS ---
Astrid Liu Age: 24 Gender: F : 2000 Exam Date: 11/10/2024 06:43 Ordering Phys: Matilde Gallegos MD ([email or web address]) Technologist: Exam Location: [facility] [place] Indication: BP: / HR: 88 Rhythm: Sinus Technical Quality: Adequate MEASUREMENTS (Male / Female) Normal Values 2D ECHO LV Diastolic Diameter PLAX 3.3 cm 4.2 - 5.9 / 3.9 - 5.3 cm IVS Diastolic Thickness 1.1 cm 0.6 - 1.0 / 0.6 - 0.9 cm IVS Systolic Thickness 1.8 cm LVPW Diastolic Thickness 1.1 cm 0.6 - 1.0 / 0.6 - 0.9 cm LVPW Systolic Thickness 1.4 cm LVOT Diameter 2.0 cm LV Ejection Fraction 2D Teich 66.8 % LV Ejection Fraction MOD 4C 58.9 % LA Diameter 3.1 cm RA Systolic Volume 4C AL 31.8 ml RA Systolic Volume 4C MOD 30.8 ml Aorta at Sinotubular Diameter 2.9 cm M-MODE LA Ao Ratio MM 1.6 AV Cusp Separation MM 2.1 cm DOPPLER AV Peak Velocity 104.0 cm/s LVOT Peak Velocity 82.0 cm/s AV Area Cont Eq vti 3.1 cm squared AV Area Cont Eq pk 2.5 cm squared MV Peak Velocity 85.0 cm/s MV Area PHT 8.0 cm squared Mitral E to A Ratio 0.8 TV Peak Velocity 112.0 cm/s TR Peak Velocity 133.0 cm/s TR Peak Gradient 7.1 mmHg TV Peak E Velocity 111.0 cm/s PV Peak Velocity 95.0 cm/s FINDINGS Left Ventricle Normal left ventricular size, systolic function and wall thickness, with no regional wall motion abnormalities. Left ventricular ejection fraction is estimated at 60%. Grade I/IV diastolic dysfunction (abnormal relaxation filling pattern), normal to mildly elevated filling pressures. Right Ventricle The right ventricle is normal in size and function. Right Atrium The right atrium is normal in size. Left Atrium The left atrium is normal in size. Mitral Valve Mildly thickened mitral valve. Moderate mitral annular calcification. No mitral valve stenosis. Trace mitral valve regurgitation. Aortic Valve Structurally normal aortic valve without significant sclerosis or stenosis. There is no aortic regurgitation. Tricuspid Valve Structurally normal tricuspid valve without significant stenosis or regurgitation. Pulmonary artery systolic pressure is normal. Pulmonic Valve Structurally normal pulmonic valve without significant stenosis. There is no pulmonic regurgitation. Pericardium Normal pericardium without effusion. Aorta Normal ascending aorta dimension. IVC The inferior vena cava appears normal. CONCLUSIONS Normal left ventricular size, systolic function and wall thickness, with no regional wall motion abnormalities. Left ventricular ejection fraction is estimated at 60%. Grade I/IV diastolic dysfunction (abnormal relaxation filling pattern), normal to mildly elevated filling pressures. Mildly thickened mitral valve. Moderate mitral annular calcification. No mitral valve stenosis. Trace mitral valve regurgitation. There is no pericardial effusion. Right atrial pressure is around 5 mm of mercury. Matilde Gallegos MD (Electronically Signed) Final Date: 24 November 2024 19:58 S
== END 2024-11-10 06:18 | disposition home or self-care (01) ==
LOC: RAD 06:20
PROVIDERS: PCP Family Medicine; Visit Provider Internal Medicine Cardiovascular Disease
DX: R00.0 Tachycardia, unspecified (principal); R00.2 Palpitations; R10.2 Pelvic and perineal pain; R93.1 Abnormal findings on diagnostic imaging of heart and coronary circulation; I34.81 Nonrheumatic mitral (valve) annulus calcification
CPT/HCPCS: 76830; 93306

== ENCOUNTER → 2024-11-13 15:10 | Outpatient (BNVA) | payer OTHER, BC, SELFPAY ==
[2024-05-28 16:23] VITALS: BP 150/82; BMI 39.0
== END ==
PROVIDERS: PCP Family Medicine
DX: R39.9 Unspecified symptoms and signs involving the genitourinary system (principal)
CPT/HCPCS: 81000; 87086

== ENCOUNTER 2024-11-22 06:00 | Outpatient (RCR) | payer OTHER, BC, MEDICAID, SELFPAY ==
[2024-05-28 16:23] VITALS: BP 150/82; BMI 39.0
== END 2024-12-22 23:59 | disposition home or self-care (01) ==
LOC: SPT 06:00
PROVIDERS: PCP Family Medicine; Visit Provider Urology
DX: R10.2 Pelvic and perineal pain (principal)
CPT/HCPCS: 90686; 97110; 97161; 97530

== ENCOUNTER → 2024-12-05 09:12 | Outpatient (BNVA) | payer OTHER, SELFPAY ==
[2024-05-28 16:23] VITALS: BP 150/82; BMI 39.0
== END ==
PROVIDERS: PCP Family Medicine; Visit Provider Nurse Practitioner Psychiatric/Mental Health
DX: Z79.899 Other long term (current) drug therapy (principal); F31.62 Bipolar disorder, current episode mixed, moderate; F10.21 Alcohol dependence, in remission; F60.3 Borderline personality disorder
CPT/HCPCS: 80061; 83036

== ENCOUNTER 2024-12-23 05:00 | Outpatient (RCR) | payer OTHER, BC, MEDICAID, SELFPAY ==
[2024-12-08 11:28] VITALS: BP 136/86; BMI 30.3
== END 2025-01-21 23:59 | disposition home or self-care (01) ==
LOC: SPT 05:00
PROVIDERS: PCP Family Medicine; Visit Provider Urology
DX: R10.2 Pelvic and perineal pain (principal)
CPT/HCPCS: 97110; 97530

== ENCOUNTER 2025-01-22 05:00 | Outpatient (RCR) | payer OTHER, BC, MEDICAID, SELFPAY ==
[2024-12-08 11:28] VITALS: BP 136/86; BMI 30.3
== END 2025-02-21 23:59 | disposition home or self-care (01) ==
LOC: SPT 05:00
PROVIDERS: PCP Family Medicine; Visit Provider Urology
DX: R10.2 Pelvic and perineal pain (principal)
CPT/HCPCS: 97110; 97530

== ENCOUNTER 2025-02-03 15:13 | Outpatient (CLI) | payer BC, MEDICAID, SELFPAY ==
[2024-12-08 11:28] VITALS: BP 136/86; BMI 30.3
[2025-02-03 16:06] LABS: Estmated Average Glucose 80; Hemoglobin A1C 4.4 % (4.0-6.0)
[2025-02-03 16:21] LABS: Testosterone Total 64.8 ng/dL (8.4-48.1)
[2025-02-04 09:40] LABS: Dehydroepiandrosterone Sulfate 585 mcg/dL (14-349)
== END 2025-02-03 15:14 | disposition home or self-care (01) ==
LOC: LAB 15:14
PROVIDERS: PCP Family Medicine; Visit Provider Internal Medicine
DX: E28.2 Polycystic ovarian syndrome (principal); E66.01 Morbid (severe) obesity due to excess calories; R79.89 Other specified abnormal findings of blood chemistry; E03.9 Hypothyroidism, unspecified
CPT/HCPCS: 36415; 82627; 83036; 84403; 84439; 84443

== ENCOUNTER 2025-02-05 07:19 | Outpatient (CLI) | payer BC, MEDICAID, SELFPAY ==
[2024-12-08 11:28] VITALS: BP 136/86; BMI 30.3
[2025-02-06 16:18] LABS: Dehydroepiandrosterone Sulfate 593 mcg/dL (14-349)
== END 2025-02-05 07:20 | disposition home or self-care (01) ==
PROVIDERS: PCP Family Medicine; Visit Provider Internal Medicine
DX: R79.89 Other specified abnormal findings of blood chemistry (principal)
CPT/HCPCS: 36415; 82627

== ENCOUNTER 2025-02-22 05:00 | Outpatient (RCR) | payer OTHER, SELFPAY ==
[2024-12-08 11:28] VITALS: BP 136/86; BMI 30.3
== END 2025-03-23 23:59 | disposition home or self-care (01) ==
LOC: SPT 05:00
PROVIDERS: PCP Family Medicine; Visit Provider Urology
DX: R10.2 Pelvic and perineal pain (principal)
CPT/HCPCS: 97110

== ENCOUNTER 2025-03-24 06:30 | Outpatient (RCR) | payer OTHER, BC, SELFPAY ==
[2024-12-08 11:28] VITALS: BP 136/86; BMI 30.3
== END 2025-04-15 12:34 | disposition home or self-care (01) ==
LOC: SPT 06:30
PROVIDERS: PCP Family Medicine; Visit Provider Urology
DX: R10.2 Pelvic and perineal pain (principal)
CPT/HCPCS: 97110

== ENCOUNTER 2025-05-05 09:32 | Outpatient (CLI) | payer OTHER, BC, MEDICAID, SELFPAY ==
[2025-03-31 11:29] VITALS: BP 136/86; BMI 30.3
--- NOTE | 2025-05-05 09:38 | CT_ITS ---
WS: [id number] CT ABDOMEN PELVIS TECHNIQUE: Noncontrast CT of the abdomen and pelvis with coronal and sagittal reformatted images. CLINICAL INFORMATION: FLANK PAIN/HX OF KIDNEY STONES COMPARISON: CT 03/10/2024 DLP: 505.[address] scans at [facility] use at least one of these dose optimization techniques: automated exposure control; mA and/or kV adjustment per patient size (includes targeted exams where dose is matched to clinical indication); or iterative reconstruction. FINDINGS: Lung bases are well aerated. Previously described tiny calculus at the RIGHT UVJ no longer visualized. No hydronephrosis in either kidney. Adrenal glands are normal. Tiny esophageal hiatal hernia. Normal noncontrast liver and gallbladder. Normal noncontrast spleen. Noncontrast pancreas is normal. Tiny fat-containing umbilical hernia. Normal caliber abdominal aorta. No other acute findings. CT/CT kidney stone [id number] IMPRESSION: 1. Previously described RIGHT UVJ calculus has resolved. No hydronephrosis in either kidney. 2. Tiny esophageal hiatal hernia. 3. Noncontrast bladder appears normal. 4. No other acute findings.
== END 2025-05-05 09:33 | disposition home or self-care (01) ==
LOC: RAD 09:33
PROVIDERS: PCP Family Medicine
DX: R10.9 Unspecified abdominal pain (principal); Z87.442 Personal history of urinary calculi
CPT/HCPCS: 74176

== ENCOUNTER 2025-05-12 11:05 | Outpatient (CLI) | payer OTHER, BC, MEDICAID, SELFPAY ==
[2025-05-11 13:55] VITALS: BP 136/86; BMI 30.3
== END 2025-05-12 11:06 | disposition home or self-care (01) ==
PROVIDERS: PCP Family Medicine; Visit Provider Family Medicine
DX: H53.9 Unspecified visual disturbance (principal); E88.810 Metabolic syndrome; E03.9 Hypothyroidism, unspecified
CPT/HCPCS: 36415; 80053; 80175; 82550; 82607; 84425; 84439; 84443; 85025; 85651; 86038

== ENCOUNTER 2025-06-15 13:34 | Outpatient (CLI) | payer OTHER, BC, MEDICAID, SELFPAY ==
[2025-05-11 13:55] VITALS: BP 136/86; BMI 30.3
--- NOTE | 2025-06-15 13:45 | MR_ITS ---
WS: [id number] MRI BRAIN WITH AND WITHOUT CONTRAST HISTORY: H53.9 - Unspecified visual disturbance COMPARISON: None available. TECHNIQUE: Multiplanar imaging performed through the brain with MultiHance 17 ml's IV. No acute infarcts are seen. Mcguire-white matter differentiation is well preserved. No susceptibility artifacts or prior lacunar infarcts. Ventricles and extra-axial spaces are normal. Clivus and pituitary gland are normal. Visualized posterior fossa and brainstem are also normal. Symmetric appearance of the orbits and globes and optic nerves. No proptosis. Symmetric appearance of the extraocular muscles. Postcontrast images are negative for masses or vascular malformations. Dural venous sinuses are normal. Paranasal sinuses: Well aerated with no significant disease. Mastoid air cells: Normal. Calvarium and scalp: Normal. MR/MR head wo/w con [id number] IMPRESSION: 1. Normal MRI brain with contrast. 2. No acute or prior infarct. No hemorrhage. 3. Normal hippocampal formations. 4. Unremarkable appearance of the orbits and globes.
[2025-06-15] MEDS: gadobenate dimeglumine 20 mL vial 17 ML IV (14:33)
== END 2025-06-15 13:35 | disposition home or self-care (01) ==
LOC: RAD 13:34
PROVIDERS: PCP Family Medicine; Visit Provider Specialist
DX: H53.9 Unspecified visual disturbance (principal)
CPT/HCPCS: 70553

== ENCOUNTER 2025-07-08 13:58 | Outpatient (CLI) | payer MEDICAID, BC, OTHER, SELFPAY ==
[2025-05-11 13:55] VITALS: BP 136/86; BMI 30.3
[2025-07-08 15:13] LABS: Estmated Average Glucose 88; Hemoglobin A1C 4.7 % (4.0-6.0)
[2025-07-08 15:14] LABS: Free T4 Free Thyroxine 1.35 ng/dL (0.82-1.77); Thyroid Stimulating Hormone 1.70 uIU/mL (0.27-4.20)
== END 2025-07-08 13:59 | disposition home or self-care (01) ==
LOC: LAB 14:02
PROVIDERS: PCP Family Medicine; Visit Provider Internal Medicine
DX: E03.9 Hypothyroidism, unspecified (principal); R79.89 Other specified abnormal findings of blood chemistry; E66.01 Morbid (severe) obesity due to excess calories; E28.2 Polycystic ovarian syndrome
CPT/HCPCS: 36415; 82627; 83036; 84403; 84439; 84443

== ENCOUNTER → 2025-08-12 08:06 | Outpatient (BNVA) | payer OTHER, BC, SELFPAY ==
[2025-05-11 13:55] VITALS: BP 136/86; BMI 30.3
== END ==
PROVIDERS: PCP Family Medicine; Visit Provider Nurse Practitioner Psychiatric/Mental Health
DX: Z79.899 Other long term (current) drug therapy (principal)
CPT/HCPCS: 80175

== ENCOUNTER 2025-08-28 08:52 | Outpatient (CLI) | payer BC, MEDICAID, SELFPAY ==
[2025-05-11 13:55] VITALS: BP 136/86; BMI 30.3
--- NOTE | 2025-08-28 09:00 | US_ITS ---
WS: [id number] RIGHT UPPER QUADRANT ULTRASOUND HISTORY: RUQ pain COMPARISON: None available. Liver: 15.3 cm in length. Normal size liver and echogenicity. No bile duct dilatation or mass. Portal Vein: Normal hepatopetal flow with monophasic waveform. Gallbladder: Large amount of shadowing from the gallbladder fossa. Gallbladder is slightly contracted and stone filled. Gallbladder wall measures 4 mm. CBD: 0.4 cm Pancreas: Limited but unremarkable as visualized. Right kidney: 10.7 cm in length. Normal size and echogenicity. No hydronephrosis or mass. Aorta and IVC: Unremarkable abdominal aorta and IVC. No ascites. US/US gall bladder [id number] IMPRESSION: 1. Stone filled gallbladder. Mild diffuse gallbladder wall thickening. No evid ence for acute cholecystitis at this time. Recommend surgical evaluation. 2. No intrahepatic duct dilatation.
== END 2025-08-28 08:53 | disposition home or self-care (01) ==
LOC: RAD 08:54
PROVIDERS: PCP Family Medicine; Visit Provider Family Medicine
DX: R10.11 Right upper quadrant pain (principal); K80.20 Calculus of gallbladder without cholecystitis without obstruction
CPT/HCPCS: 76705

== ENCOUNTER → 2025-08-29 15:05 | Outpatient (BNVA) | payer BC, MEDICAID, SELFPAY ==
[2025-05-11 13:55] VITALS: BP 136/86; BMI 30.3
== END ==
PROVIDERS: PCP Family Medicine; Visit Provider Registered Nurse Neonatal Intensive Care
DX: R30.0 Dysuria (principal)
CPT/HCPCS: 81000; 87086